=== PATIENT | female | born 1935 | race Caucasian/White ===

== ENCOUNTER → 2017-08-29 | Outpatient (CLI) | payer MEDICARE ==
[~2017-08-29] MED LIST: ASPI325B; ATEN100; ATOR10 PO; CULTURELLE1 EACH PO; DIAVAN; DIPATR PO; DULO30 PO; EZET10; HYDACE5 PO; HYDR1TAB94 PO; LEVFLO500 PO; LEVSOD125 PO; METR500 PO; NYST100SU MT; OMEP20ER PO; Prednisone20 MG PO; VENL25 PO; VENL75
== END | disposition home or self-care (01) ==
LOC: LAB 16:05
DX: N89.8 Other specified noninflammatory disorders of vagina (principal)
CPT/HCPCS: 87070; 87205

== ENCOUNTER 2018-07-15 12:44 | Emergency (ER) | payer MEDICARE ==
[~2018-07-15] VITALS: Ht 154.9 cm; Wt 58.1 kg
[~2018-07-15 12:44] MED LIST changes: -ONDA4 PO; -Roxicodone5 MG PO
[2018-07-15 14:04] LABS: Alanine Aminotransfer (ALT/SGP 40 U/L (12-78); Albumin, Blood 3.3 g/dL (3.4-5.0); Albumin/Globulin Ratio 0.9 (0.8-1.8); Alk Phos 89 U/L (50-136); Anion Gap 6 mmol/L (6-16); Aspartate Aminotrans (AST/SGOT 42 U/L (12-37); Bilirubin, Total 0.3 mg/dL (0.1-1.0); Blood Urea Nitrogen 18 mg/dL (8-24); Bun/Creatinine Ratio 21.2 (12.0-20.0); CO2, Blood 24 mmol/L (21-32); Calcium, Blood 8.1 mg/dL (8.5-10.1); Chloride, Blood 112 mmol/L (98-108); Creatinine, Blood 0.85 mg/dL (0.40-1.00); Globulin, Blood 3.7 g/dL (2.2-4.0); Glomerular Filtration Rate >60 (60-); Glucose, Blood 114 mg/dL (70-99); Magnesium, Blood 1.6 mg/dL (1.6-2.4); Sodium, Blood 142 mmol/L (136-145)
[2018-07-15 14:54] LABS: Triglycerides 139 mg/dL (30-160)
[2018-07-15] MEDS ORDERED: Roxicodone5 MG PO (15:09)
[2018-07-15] MEDS ORDERED: ONDA4 PO (15:09)
== END 2018-07-15 15:28 | disposition home or self-care (01) ==
LOC: ER 12:44
PROVIDERS: Physician Assistant
DX: K85.90 Acute pancreatitis without necrosis or infection, unspecified (principal); I12.9 Hypertensive chronic kidney disease with stage 1 through stage 4 chronic kidney disease, or unspecified chronic kidney disease; E03.9 Hypothyroidism, unspecified; N18.9 Chronic kidney disease, unspecified; E78.5 Hyperlipidemia, unspecified; Z87.891 Personal history of nicotine dependence; Z90.49 Acquired absence of other specified parts of digestive tract
CPT/HCPCS: 74177; 80053; 83690; 83735; 84478; 85025; 96360; 96361; 99284-25; J7030; Q9967

== ENCOUNTER → 2018-07-15 | Outpatient (CLI) | payer MEDICARE ==
[~2018-07-15] MED LIST changes: +ONDA4 PO; +Roxicodone5 MG PO
[2018-07-15 11:14] LABS: BASOPHILS ABSOLUTE AUTO 0.05 K/mm3 (0.00-0.23); BASOPHILS PERCENT AUTO 1 % (0-2); EOSINOPHILS ABSOLUTE AUTO 0.04 K/mm3 (0.00-0.68); EOSINOPHILS PERCENT AUTO 1 % (0-6); Hematocrit 38.9 % (33.0-51.0); Hemoglobin 13.1 g/dL (11.5-16.0); IMMATURE GRAN ABSOLUTE AUTO 0.02 K/mm3 (0.00-0.10); IMMATURE GRAN PERCENT AUTO 0 % (0-1); LYMPHOCYTES ABSOLUTE AUTO 0.81 K/mm3 (0.84-5.20); LYMPHOCYTES PERCENT AUTO 12 % (21-46); MONOCYTES ABSOLUTE AUTO 0.55 K/mm3 (0.16-1.47); MONOCYTES PERCENT AUTO 8 % (4-13); Mean Corpuscular HGB 28.7 pg (26.0-34.0); Mean Corpuscular HGB Conc 33.7 g/dL (31.5-36.5); Mean Corpuscular Volume 85 fL (80-100); Mean Platelet Volume 10.9 fL (9.1-12.4); NEUTROPHILS ABSOLUTE AUTO 5.38 K/mm3 (1.96-9.15); NEUTROPHILS PERCENT AUTO 79 % (41-73); Platelet Count 168 K/mm3 (150-400); RDW Coefficient Variation 14.9 % (11.7-14.2); RDW Standard Deviation 45.6 fL (35.1-46.3); Red Blood Cell Count 4.56 M/mm3 (3.80-5.20); White Blood Cell Count 6.85 K/mm3 (4.00-11.30)
[2018-07-15 11:31] LABS: Albumin, Blood 3.3 g/dL (3.4-5.0); Albumin/Globulin Ratio 0.8 (0.8-1.8); Bilirubin, Total 0.4 mg/dL (0.1-1.0); Bun/Creatinine Ratio 19.2 (12.0-20.0); Calcium, Blood 9.4 mg/dL (8.5-10.1); Creatinine, Blood 1.04 mg/dL (0.40-1.00); Globulin, Blood 3.9 g/dL (2.2-4.0); Potassium, Blood 3.9 mmol/L (3.5-5.5); Total Protein, Blood 7.2 g/dL (6.4-8.2)
== END | disposition home or self-care (01) ==
LOC: LAB SHORT 11:10 → LAB EV 11:10
PROVIDERS: General Practice
DX: R10.9 Unspecified abdominal pain (principal)
CPT/HCPCS: 80053; 83690; 85025

== ENCOUNTER 2019-02-10 22:09 | Inpatient (IN) | payer OTHER ==
[~2019-02-10] VITALS: Ht 160 cm; Wt 66.1 kg
[~2019-02-10 22:09] MED LIST changes: -LEVSOD125 PO; +ONDA4 PO; +Roxicodone5 MG PO
[2019-02-11 00:50] LABS: BASOPHILS ABSOLUTE AUTO 0.06 K/mm3 (0.00-0.23); BASOPHILS PERCENT AUTO 1 % (0-2); EOSINOPHILS PERCENT AUTO 2 % (0-6); Hematocrit 42.1 % (33.0-51.0); Hemoglobin 13.8 g/dL (11.5-16.0); IMMATURE GRAN ABSOLUTE AUTO 0.05 K/mm3 (0.00-0.10); IMMATURE GRAN PERCENT AUTO 1 % (0-1); LYMPHOCYTES ABSOLUTE AUTO 1.56 K/mm3 (0.84-5.20); LYMPHOCYTES PERCENT AUTO 23 % (21-46); MONOCYTES ABSOLUTE AUTO 0.63 K/mm3 (0.16-1.47); MONOCYTES PERCENT AUTO 9 % (4-13); Mean Corpuscular HGB 30.1 pg (26.0-34.0); Mean Corpuscular HGB Conc 32.8 g/dL (31.5-36.5); Mean Corpuscular Volume 92 fL (80-100); Mean Platelet Volume 11.2 fL (9.1-12.4); NEUTROPHILS ABSOLUTE AUTO 4.27 K/mm3 (1.96-9.15); NEUTROPHILS PERCENT AUTO 64 % (41-73); Platelet Count 153 K/mm3 (150-400); RDW Coefficient Variation 14.1 % (11.7-14.2); RDW Standard Deviation 47.8 fL (35.1-46.3); Red Blood Cell Count 4.58 M/mm3 (3.80-5.20); White Blood Cell Count 6.67 K/mm3 (4.00-11.30)
[2019-02-11 01:01] LABS: Albumin, Blood 3.8 g/dL (3.4-5.0); Bilirubin, Total 0.6 mg/dL (0.1-1.0); Calcium, Blood 8.6 mg/dL (8.5-10.1); Creatinine, Blood 1.06 mg/dL (0.40-1.00); Globulin, Blood 3.8 g/dL (2.2-4.0); Potassium, Blood 4.1 mmol/L (3.5-5.5); Total Protein, Blood 7.6 g/dL (6.4-8.2)
[2019-02-11 06:20] LABS: Hematocrit 39.4 % (33.0-51.0); Hemoglobin 12.9 g/dL (11.5-16.0)
[2019-02-11 06:56] LABS: Bun/Creatinine Ratio 28.4 (12.0-20.0); Calcium, Blood 8.3 mg/dL (8.5-10.1); Creatinine, Blood 1.09 mg/dL (0.40-1.00); Potassium, Blood 4.3 mmol/L (3.5-5.5)
--- NOTE | 2019-02-11 08:05 | NUR ---
SUMMARY PT ADMITTED THIS AM FOR ORTHO CX RE:FX HIP. PT REPORTS DILAUDID EFFECTVIE FOR PAIN. ABLE TO VOID PER BEDPAN. CIRC CKS INTACT.
--- NOTE | 2019-02-11 14:51 | NUR ---
PT TO OR AT ABOUT 1241
[2019-02-11 18:12] LABS: Thyroxine (T4) 14.7 ug/dL (4.8-13.9)
[2019-02-11 18:14] LABS: Thyroid Stimulating Hormone <0.005 uIU/mL (0.360-4.800)
--- NOTE | 2019-02-11 19:24 | NUR ---
POST OP: REPORT RECIEVED FROM FRANKY, [employer] FIRE PREVENTION SPECIALIST. PT BACK FROM OR AT ABOUT 1600. UPON ASSESSMENT PT IS DROWSY, AWAKENS BUT FALLS BACK TO SLEEP QUICKLY. PT IS ORIENTED TO SELF AND FAMILY ONLY, FOLLOWS DIRECTIONS. PT HAS SHALLOW BREATHING AND RR AT 7 IF SLEEPING, 10 IF AWAKENED AND MORE ALERT. PT ENCOURAGED TO TAKE MORE DEEP BREATHS AND DIGITAL MARKETING PROGRAM MANAGER RONNELL CALLED TO ROOM. AFTER CONTINUED ASSESSMENT AND PT RR CONTINUING TO BE 7-10, RONNELL CALLED DR. MCCARTY AND DR. RENAE. TO MAKE AWARE OF PT STATUS. THIS RN CONTINUED TO BE IN ROOM AT BEDSIDE. AT 1627 PT STATUS HAD NOT CHANGED AND NO NEW ORDERS FROM MD'S AT THIS TIME. A RAPID RESPONSE WAS THEN CALLED AT APPROX 1630. RR TEAM AND DIGITAL MARKETING PROGRAM MANAGER IN ROOM AT 1635 AND PT ASSESSED. HOB RAISED AND O2 INCREASED FROM 2L TO 4L VIA NC. PT BECAME MORE ALERT AND AWAKE WITH MORE ACTIVITY IN THE ROOM AND RR INCREASED TO 15, CONTINUED TO ENCOURAGE DEEP BREATHS, AND ASKING PT TO ANSWER QUESTIONS. CONTINUIOUS BI OX PLACED ON PT AND PT FAMILY ALSO IN ROOM AT THIS TIME.
--- NOTE | 2019-02-11 19:41 | NUR ---
PT TO IMAGING. TECH TOOK PT IN HOSP BED. PT DROWSY, ALERT, ORIENTED X2, VSS.
--- NOTE | 2019-02-11 19:43 | NUR ---
DR. RENAE IN TO SEE PT AT ABOUT 1720. PT RR 12, AND 98% ON 4L. PT CONTINUES TO BE DROWSY, BUT AWAKENS TO VOICE AND FOLLOWS DIRECTIONS. ORIENTED X4. DR. RENAE ORDERED NARCAN TO BE GIVEN AND THIS RN ADMINISTERED 0.4 MG AT 1728. PT CONTINUED TO BE MONITORED CLOSELY AND VITAL SIGNS TAKEN. PT MORE AWAKE AND ALERT ABOUT 4 MIN AFTER ADMINISTRATION. RR 15. NEW IMAGING ORDERS FROM DR. RENAE AT THIS TIME. CONTINUING TO MONITOR CLOSLY, TELE ALSO ORDERED, APPLIED AND VERIFIED. NSR, 68. WILL CTM PT STATUS.
--- NOTE | 2019-02-11 20:01 | NUR ---
SUMMARY: SEE PREVIOUS NOTES. PT RR AND VS STABLE AT 1808. PT IS MUCH MORE ALERT AND NON DROWSY, TAKING DEEPING BREATHS. PT ABLE TO EAT SOME JELLO AND DRINK WATER. DENIED NEED TO VOID, BLADDER SCAN SHOWED 223ML, WILL KEEP FLUIDS INFUSING AND MAKE NOC RN AWARE. PT REPORTED PAIN REDUCED WITH TORADOL..ICE PACK PUT AT SURGICAL SITE. DRESSINGS ARE CDI, CSM INTACT TO R LEG. BED ALARM ON FOR SAFETY.. WILL PASS REPORT TO NOC RN.
--- NOTE | 2019-02-11 22:33 | NUR ---
DR IBARRA CALLED IN FOR AN UPDATE. PT NEURO STATUS AND VITALS REV W/MD. NO NEW ORDERS REC AT THIS TIME.
[2019-02-12 04:27] LABS: BASOPHILS PERCENT AUTO 0 % (0-2); EOSINOPHILS PERCENT AUTO 0 % (0-6); Hematocrit 32.1 % (33.0-51.0); Hemoglobin 10.5 g/dL (11.5-16.0); IMMATURE GRAN ABSOLUTE AUTO 0.02 K/mm3 (0.00-0.10); IMMATURE GRAN PERCENT AUTO 0 % (0-1); LYMPHOCYTES ABSOLUTE AUTO 0.41 K/mm3 (0.84-5.20); LYMPHOCYTES PERCENT AUTO 7 % (21-46); MONOCYTES ABSOLUTE AUTO 0.17 K/mm3 (0.16-1.47); MONOCYTES PERCENT AUTO 3 % (4-13); Mean Corpuscular HGB 29.7 pg (26.0-34.0); Mean Corpuscular HGB Conc 32.7 g/dL (31.5-36.5); Mean Corpuscular Volume 91 fL (80-100); Mean Platelet Volume 10.9 fL (9.1-12.4); NEUTROPHILS ABSOLUTE AUTO 5.05 K/mm3 (1.96-9.15); NEUTROPHILS PERCENT AUTO 89 % (41-73); Platelet Count 86 K/mm3 (150-400); RDW Coefficient Variation 14.2 % (11.7-14.2); RDW Standard Deviation 46.9 fL (35.1-46.3); Red Blood Cell Count 3.53 M/mm3 (3.80-5.20); White Blood Cell Count 5.65 K/mm3 (4.00-11.30)
--- NOTE | 2019-02-12 05:05 | NUR ---
POS 1 S/P R HIP REPAIR. PT MORE ALERT THIS AM, VSS T/O NIGHT, HR SINUS 60'S PER TELE MONITOR, SATS >94% ON 2LNC. DRESSINGS CDI. PAIN MGD W/REPOSITIONING AND TORADOL. PT KIERRA REG PO, IS VOIDING URINE W/O DIFFICULTY. PT UP OOB W/FWW+2 MAX ASSIST, PT NEEDING FREQUENT REMINDERS TO MAINTAIN WBS. PT USING CALL LIGHT THIS AM, BED ALARM ON FOR SAFETY, WILL CONT TO MONITOR UNTIL REP GIVEN TO ONCOMING RN.
--- NOTE | 2019-02-12 19:46 | NUR ---
SHIFT SUMMARY PT A&OX4, VSS, POD1 R HIP NAILING, 2 AQUACEL CDI. AMB W/FWW & GB TO BED, CHAIR AND BRP, TTWB. PAIN MANAGED WITH TORADOL. KIERRA PO, DENIES N&V. SAT IN CHAIR T/O SHIFT. VOIDING WELL. REPORT GIVEN TO AROLDO DUNN.
--- NOTE | 2019-02-13 05:47 | NUR ---
SHIFT SUMMARY POD#2 RIGHT TFN. PT RESTED INFREQUENTLY T/O NIGHT. CONFUSED AT TIMES/IMPULSIVE. PT REMOVED DRESSING TO HIP THIS SHIFT, NEW DRESSING APPLIED. DISCOMFORT CONTROLLED WITH TORADOL Q6P. NO NAUSEA/EMESIS. PT SBA WITH FWW UP TO RESTROOM. BED ALARM ON FOR SAFETY. IVF TKO. PT HAD LARGE BM THIS AM. RESTING AT THIS TIME. CALL LIGHT IN REACH. NADN.
[2019-02-13 05:49] LABS: BASOPHILS PERCENT AUTO 0 % (0-2); EOSINOPHILS PERCENT AUTO 0 % (0-6); Hematocrit 30.5 % (33.0-51.0); Hemoglobin 9.9 g/dL (11.5-16.0); IMMATURE GRAN ABSOLUTE AUTO 0.02 K/mm3 (0.00-0.10); IMMATURE GRAN PERCENT AUTO 0 % (0-1); LYMPHOCYTES ABSOLUTE AUTO 0.51 K/mm3 (0.84-5.20); LYMPHOCYTES PERCENT AUTO 8 % (21-46); MONOCYTES ABSOLUTE AUTO 0.65 K/mm3 (0.16-1.47); MONOCYTES PERCENT AUTO 10 % (4-13); Mean Corpuscular HGB 30.1 pg (26.0-34.0); Mean Corpuscular HGB Conc 32.5 g/dL (31.5-36.5); Mean Corpuscular Volume 93 fL (80-100); Mean Platelet Volume 11.4 fL (9.1-12.4); NEUTROPHILS ABSOLUTE AUTO 5.07 K/mm3 (1.96-9.15); NEUTROPHILS PERCENT AUTO 81 % (41-73); RDW Coefficient Variation 14.5 % (11.7-14.2); RDW Standard Deviation 48.9 fL (35.1-46.3); Red Blood Cell Count 3.29 M/mm3 (3.80-5.20); White Blood Cell Count 6.25 K/mm3 (4.00-11.30)
[2019-02-13 05:51] LABS: Platelet Count 88 K/mm3 (150-400)
== END 2019-02-13 14:10 | DRG 482 ==
LOC: ER 22:09 → SURS 22:10
PROVIDERS: Emergency Medicine; Orthopaedic Surgery; ADMIT Family Medicine
PROC: 0QH636Z Insertion of Intramedullary Internal Fixation Device into Right Upper Femur, Percutaneous Approach (ICD-10-PCS; principal; 2019-02-11 10:15)
DX: S72.144A Nondisplaced intertrochanteric fracture of right femur, initial encounter for closed fracture (principal); W19.XXXA Unspecified fall, initial encounter; I10 Essential (primary) hypertension; E03.9 Hypothyroidism, unspecified; Z87.891 Personal history of nicotine dependence; Z79.899 Other long term (current) drug therapy; S09.8XXA Other specified injuries of head, initial encounter
CPT/HCPCS: 36415; 70450; 71045; 72192; 73502; 80048; 80053; 84436; 84443; 85014; 85018; 85025; 93005; 93010; 94762; 96374; 96375; 96376; 97110; 97116; 97162; 97166; 97530; 97535; 99285-25; A9270-GY; C1713; C1769; J0690; J1100; J1170; J1650; J1885; J2250; J2310; J2370; J2405; J2704; J3010; J3480; J7030; J7120

== ENCOUNTER 2019-03-03 11:24 | Emergency (ER) | payer OTHER ==
[~2019-03-03] VITALS: Ht 157.5 cm; Wt 52.2 kg
[2019-03-03] MEDS ORDERED: Hydrocodone-Ap1 EA23 PO (11:31)
[2019-03-03] MEDS ORDERED: MEMA5TAB PO (11:32)
[2019-03-03] MEDS ORDERED: ALLO100 PO (11:32)
[2019-03-03 12:26] LABS: BASOPHILS ABSOLUTE AUTO 0.04 K/mm3 (0.00-0.23); BASOPHILS PERCENT AUTO 0 % (0-2); EOSINOPHILS ABSOLUTE AUTO 0.01 K/mm3 (0.00-0.68); EOSINOPHILS PERCENT AUTO 0 % (0-6); Hematocrit 36.4 % (33.0-51.0); Hemoglobin 11.8 g/dL (11.5-16.0); IMMATURE GRAN ABSOLUTE AUTO 0.11 K/mm3 (0.00-0.10); IMMATURE GRAN PERCENT AUTO 1 % (0-1); LYMPHOCYTES ABSOLUTE AUTO 0.73 K/mm3 (0.84-5.20); LYMPHOCYTES PERCENT AUTO 5 % (21-46); MONOCYTES ABSOLUTE AUTO 0.98 K/mm3 (0.16-1.47); MONOCYTES PERCENT AUTO 7 % (4-13); Mean Corpuscular HGB 28.8 pg (26.0-34.0); Mean Corpuscular HGB Conc 32.4 g/dL (31.5-36.5); Mean Corpuscular Volume 89 fL (80-100); Mean Platelet Volume 11.9 fL (9.1-12.4); NEUTROPHILS ABSOLUTE AUTO 11.78 K/mm3 (1.96-9.15); NEUTROPHILS PERCENT AUTO 86 % (41-73); Platelet Count 183 K/mm3 (150-400); RDW Coefficient Variation 13.3 % (11.7-14.2); RDW Standard Deviation 43.5 fL (35.1-46.3); White Blood Cell Count 13.65 K/mm3 (4.00-11.30)
[2019-03-03 12:39] LABS: Albumin, Blood 3.2 g/dL (3.4-5.0); Albumin/Globulin Ratio 0.8 (0.8-1.8); Bilirubin, Total 0.7 mg/dL (0.1-1.0); Bun/Creatinine Ratio 29.2 (12.0-20.0); Calcium, Blood 8.5 mg/dL (8.5-10.1); Creatinine, Blood 1.06 mg/dL (0.40-1.00); Globulin, Blood 3.8 g/dL (2.2-4.0); Potassium, Blood 4.3 mmol/L (3.5-5.5)
[2019-03-03] MEDS ORDERED: Flagyl500 MG PO (14:18)
[2019-03-03] MEDS ORDERED: Cipro500 MG PO (14:18)
== END 2019-03-03 14:50 | disposition home or self-care (01) ==
LOC: ER 11:24
PROVIDERS: Emergency Medicine
DX: K57.12 Diverticulitis of small intestine without perforation or abscess without bleeding (principal); Z88.8 Allergy status to other drugs, medicaments and biological substances; Z79.899 Other long term (current) drug therapy; I10 Essential (primary) hypertension; E03.9 Hypothyroidism, unspecified; Z87.891 Personal history of nicotine dependence
CPT/HCPCS: 36415; 74176; 80053; 83690; 85025; 93005; 93010; 96361; 96374; 99285-25; A9270-GY; J1170; J7030

== ENCOUNTER 2019-03-10 16:41 | Inpatient (IN) | payer OTHER ==
[~2019-03-10] VITALS: Ht 160 cm; Wt 60.2 kg
[~2019-03-10 16:41] MED LIST changes: +ALLO100 PO; +Cipro500 MG PO; +Flagyl500 MG PO; +Hydrocodone-Ap1 EA23 PO; +MEMA5TAB PO
[2019-03-10] MEDS ORDERED: LEVSOD100 PO (17:16)
[2019-03-10] MEDS ORDERED: CELE100 PO (17:17)
[2019-03-10 17:40] LABS: BASOPHILS ABSOLUTE AUTO 0.04 K/mm3 (0.00-0.23); BASOPHILS PERCENT AUTO 1 % (0-2); EOSINOPHILS ABSOLUTE AUTO 0.09 K/mm3 (0.00-0.68); EOSINOPHILS PERCENT AUTO 1 % (0-6); IMMATURE GRAN ABSOLUTE AUTO 0.07 K/mm3 (0.00-0.10); IMMATURE GRAN PERCENT AUTO 1 % (0-1); LYMPHOCYTES ABSOLUTE AUTO 0.66 K/mm3 (0.84-5.20); LYMPHOCYTES PERCENT AUTO 10 % (21-46); MONOCYTES ABSOLUTE AUTO 0.57 K/mm3 (0.16-1.47); MONOCYTES PERCENT AUTO 9 % (4-13); Mean Corpuscular HGB 28.8 pg (26.0-34.0); Mean Corpuscular HGB Conc 31.3 g/dL (31.5-36.5); Mean Platelet Volume 10.8 fL (9.1-12.4); NEUTROPHILS ABSOLUTE AUTO 5.25 K/mm3 (1.96-9.15); NEUTROPHILS PERCENT AUTO 79 % (41-73); Platelet Count 160 K/mm3 (150-400); RDW Coefficient Variation 14.2 % (11.7-14.2); RDW Standard Deviation 48.1 fL (35.1-46.3); Red Blood Cell Count 3.47 M/mm3 (3.80-5.20); White Blood Cell Count 6.68 K/mm3 (4.00-11.30)
[2019-03-10 17:41] LABS: Mean Corpuscular Volume 92 fL (80-100)
[2019-03-10 17:56] LABS: Troponin I <0.015 ng/mL (0.000-0.040)
[2019-03-10 17:59] LABS: International Normalized Ratio 1.23; Prothrombin Time Results 12.8 Sec (9.7-11.5)
[2019-03-10 18:04] LABS: Alanine Aminotransfer (ALT/SGP 9 U/L (12-78); Albumin, Blood 2.5 g/dL (3.4-5.0); Albumin/Globulin Ratio 0.7 (0.8-1.8); Alk Phos 85 U/L (50-136); Anion Gap 10 mmol/L (6-16); Aspartate Aminotrans (AST/SGOT 12 U/L (12-37); Bilirubin, Total 0.4 mg/dL (0.1-1.0); Blood Urea Nitrogen 115 mg/dL (8-24); Bun/Creatinine Ratio 11.4 (12.0-20.0); CO2, Blood 16 mmol/L (21-32); Calcium, Blood 7.8 mg/dL (8.5-10.1); Chloride, Blood 111 mmol/L (98-108); Globulin, Blood 3.5 g/dL (2.2-4.0); Glomerular Filtration Rate 4 (60-); Glucose, Blood 101 mg/dL (70-99); Potassium, Blood 5.9 mmol/L (3.5-5.5); Sodium, Blood 137 mmol/L (136-145)
[2019-03-10] MEDS ORDERED: LEVSOD125 PO (18:12)
[2019-03-10] MEDS ORDERED: DONEPEZIL HCL5 M1 PO (18:12)
[2019-03-10] MEDS ORDERED: ATEN50 PO (18:14)
[2019-03-10 18:30] LABS: Source, Urine Clean Catch
[2019-03-10 18:38] LABS: Appearance, Urine Hazy (Clear); Bilirubin, Urine Neg (Neg); Blood, Urine Neg (Neg); Color, Urine Yellow (P-Yellow); Glucose Qualitative, Urine Neg (Neg); Ketones, Urine Neg (Neg); Leukocyte Esterase, Urine 1+ (Neg); Nitrite, Urine Neg (Neg); Protein, Urine Neg (Neg); Urobilinogen, Urine NORM (Normal)
[2019-03-10 18:46] LABS: Amorphous Light (0-Heavy); Bacteria Few /hpf; Red Blood Cells, Urine 0-2 /hpf (0-2); Squamous Epithelial Cells Mod /hpf (Few); White Blood Cells, Urine 0-2 /hpf (0-5)
[2019-03-11 03:59] LABS: Hematocrit 29.2 % (33.0-51.0); Hemoglobin 9.3 g/dL (11.5-16.0); Mean Corpuscular HGB 28.4 pg (26.0-34.0); Mean Corpuscular HGB Conc 31.8 g/dL (31.5-36.5); Mean Corpuscular Volume 89 fL (80-100); Mean Platelet Volume 10.5 fL (9.1-12.4); Platelet Count 156 K/mm3 (150-400); RDW Coefficient Variation 13.8 % (11.7-14.2); RDW Standard Deviation 45.4 fL (35.1-46.3); Red Blood Cell Count 3.27 M/mm3 (3.80-5.20); White Blood Cell Count 5.35 K/mm3 (4.00-11.30)
[2019-03-11 04:24] LABS: Magnesium, Blood 2.2 mg/dL (1.6-2.4)
[2019-03-11 04:30] LABS: Albumin, Blood 2.4 g/dL (3.4-5.0); Anion Gap 14 mmol/L (6-16); Blood Urea Nitrogen 127 mg/dL (8-24); Bun/Creatinine Ratio 12.6 (12.0-20.0); CO2, Blood 16 mmol/L (21-32); Chloride, Blood 112 mmol/L (98-108); Glomerular Filtration Rate 4 (60-); Glucose, Blood 113 mg/dL (70-99); Potassium, Blood 5.5 mmol/L (3.5-5.5); Sodium, Blood 142 mmol/L (136-145)
--- NOTE | 2019-03-11 06:15 | NUR ---
SHIFT SUMMARY PT SLEEPING IN ROOM COMFORTABLY AT THIS TIME. NO ACUTE CHANGES IN STATUS SINCE PT ARRIVAL. DR ZAMUDIO SAW PT AND ORDERS WERE GIVEN. SODIUM BICARB GTT INFUSING IN PIV. PT DENIES ANY FURTHER N/V, ABLE TO TOLERATE ICE WATER. DENIES ANY CP OR SOB. RESP EVEN UNLABORED ON RA W/ SATS >92%. PT AOX4, SOME DEMENTIA NOTED IN HX, PT DENIES. PT IS BR AT THIS TIME D/T WEAKNESS, USING BEDPAN FOR LIQUID STOOL. ATTENDS IN PLACE. CALL LIGHT IN REACH.
--- NOTE | 2019-03-11 16:41 | NUR ---
MSRA SWABS CANCELED MRSA SWABS, PT REPORTS SHE HAS BEEN TAKING ANTIBIOTICS AN OUTPATIENT. FAMILY PARVIN HER LAST DOSE WAS ON 02/06/2019 AT ABOUT 1900. WILL NEED TO COLLECT NEW SWABS ONCE PT HAS BEEN OFF OF ANTIBIOTICS FOR 48HRs.
--- NOTE | 2019-03-11 16:47 | NUR ---
SHIFT SUMMARY PT A&Ox4. CALM AND COOPERATIVE WITH CARE. PT RESTING IN BED. UP TO BSC x1, 2 PERSON ASSIST WITH TRANSFER WITH GB AND WALKER. AFTER LUNCH, PT REPORTS BLOATING AND ABD CRAMPING, NOTIFIED DR GODWIN NEW ORDERS ENTERED, MAALOX ADMINISTERED WITH SYMPTOMS RELIEF. PT DENIES SOB AND PAIN. VSS. NOTIFIED DR. ZAMUDIO THAT PT IS HAVING LIQUID STOOL AND UNABLE TO SEPERATE FROM URINE FOR 24 HR URINE, NO NEW ORDERS. WILL CONTINUE TO MONITOR UNTIL REPORT GIVEN TO ONCOMING RN.
--- NOTE | 2019-03-11 18:54 | NUR ---
BLADDER SCAN >500cc, PT DOES FEEL THE NEED TO VOID, NOTIFIED DR ZAMUDIO, NEW ORDERS ENTERED.
[2019-03-12 03:54] LABS: Hematocrit 28.3 % (33.0-51.0); Hemoglobin 9.3 g/dL (11.5-16.0)
[2019-03-12 04:19] LABS: CPK Creatine Kinase 23 U/L (26-193); Uric Acid, Blood 7.6 mg/dL (2.6-6.0)
[2019-03-12 04:22] LABS: Albumin, Blood 2.4 g/dL (3.4-5.0); Anion Gap 11 mmol/L (6-16); Blood Urea Nitrogen 115 mg/dL (8-24); Bun/Creatinine Ratio 11.3 (12.0-20.0); CO2, Blood 26 mmol/L (21-32); Calcium, Blood 6.9 mg/dL (8.5-10.1); Chloride, Blood 103 mmol/L (98-108); Glomerular Filtration Rate 4 (60-); Glucose, Blood 148 mg/dL (70-99); Potassium, Blood 4.3 mmol/L (3.5-5.5); Sodium, Blood 140 mmol/L (136-145)
--- NOTE | 2019-03-12 06:23 | NUR ---
SHIFT SUMMARY PT HAS REMAINED AOX4 THROUGHOUT THE NIGHT, BUT FORGETFUL UPON FIRST WAKING. PT HAS BEEN CALLING OUT INTO THE [facility] FOR FAMILY WHEN SHE WAKES UP AND IS UNSURE OF WHERE SHE IS, BUT REORIENTS QUICKLY. VSS. HAS BEEN VERY PLEASANT AND COOPERATIVE WITH CARE. PT CONTINUES TO USE BEDPAN FOR VOIDING AND BMs, ONE EPISODE OF INCONTINENCE LAST NIGHT. PT CONTINUES TO REPORT ABDOMINAL DISCOMFORT AND "BLOATING" THAT DECREASED WITH MAALOX LAST NIGHT BUT DID NOT GO AWAY THROUGHOUT THE NIGHT. PT TURNED SELF IN BED AND WAS ABLE TO REST THROUGHOUT MUCH OF THE NIGHT. 24 HOUR URINE SPECIMEN STARTED @0315 THIS AM WHEN PT WAS ABLE TO VOID WITHOUT LIQUID STOOL. NO OTHER CHANGES NOTED FROM INITIAL ASSESSMENT. WILL CONTINUE TO MONITOR AND REPORT TO ONCOMING SHIFT RN. BED IN LOW POSITION, CALL LIGHT IN REACH. BED ALARM SET FOR SAFETY.
--- NOTE | 2019-03-12 08:00 | NUR ---
ASSUMED CARE PT ALERT AND ORIENTED. VS STABLE. O2 SATS REMAIN ABOVE 90% ON RA. PT DENIES ANY PAIN. PT HAVING INCONTINENT BM THIS MORNING THAT IS LIQUID BROWN. PT HAS NOT BEEN PRODUCING URINE PER ADVERTISING MANAGER. NS INFUSING PER ORDERS. PT REPOSITIONING HERSELF IN BED. DR. GODWIN IN WITH STATUS CHANGE TO MEDICAL WITHOUT TELEMETRY. WILL CONTINUE TO MONITOR.
--- NOTE | 2019-03-12 10:59 | NUR ---
REPORT CALLED TO MEDICAL FLOOR RN. WILL TAKE PT UP BY BED.
--- NOTE | 2019-03-12 11:15 | NUR ---
PT ARRIVED TO THE MEDICAL FLOOR VIA BED, A/OX3, PLEASANT AND COOPERATIVE, THE PT WAS ORIENTED TO THE ROOM LAYOUT AND CALL SYSTEM, PTS IS AT THE BEDSIDE, CALL LIGHT IN REACH, THE PT APPEARS TO BE BREATHING EASILY AT REST, I AGREE WITH THE AM RN SHIFT ASSESSMENT
--- NOTE | 2019-03-12 16:05 | NUR ---
PT IS A/OX3, PLEASANT AND COOPERATIVE, THE PT DENIES ANY PAIN HOWEVER REPORTED FEELING BLOATED AN ORDER FOR MALOX WAS ORDERED BY DR. GODWIN AND GIVEN, THE PTS 24HR URINE COLLECTION WAS RESTARTED DUE TO STOOL IN ONE OF THE COLLECTIONS, THE PT CONTINUES TO HAVE DIARRHEA AT THIS TIME, THE PT APPEARS TO BE BREATHING EASILY AT REST, CALL LIGHT IN REACH, FAMILY AT THE BEDSIDE
--- NOTE | 2019-03-13 03:59 | NUR ---
SHIFT SUMMARY PT ADMITTED FOR ACUTE ON CHRONIC KIDNEY INJURY. CONTACT ISOLATION FOR HX OF MRSA IN THE NARES. FULL CODE. RENAL DIET. NS AT 75 MLS/HR. R HIP FX ABOUT 1 MONTH AGO PER REPORT. PTS CREATNINE 10.2 AND GFR OF 4-DR ZAMUDIO FOLLOWING PT. CONTINUE TO ATTEMPT TO COLLECT 24 HR URINE HOWEVER, HAD TO BE RESTARTED DUE TO PTS STOOL CONTAMINATING URINE. HAD TO START OVER THIS SHIFT AND AGAIN URINE WAS CONTAMINATED BY LOOSE STOOL. 18G IV TO R AC. TAKES MEDICATIONS WHOLE. 2 PERSON ASSIST WITH TRANSFER. THE PT PRESENTED WITH ABDOMINAL PAIN, NAUSEA, DECREASED APPETITE AND URINE OUTPUT. THE PT WAS SEEN IN THE ED 10 DAYS AGO WITH ABD PAIN AND DIARRHEA AND WAS SENT HOME ON ANTIBIOTICS. THE PT RETURNED, STATING THAT THERE HAD BEEN NO FOOD OR WATER INTAKE FOR 6-7 DAYS AND NO URINE OUTPUT FOR 3 DAYS. THE PT REPORTED C/O DIFFICULTY BREATHING AND FEELING VERY BLOATED. PT STATS GREATER THEN 90. ASSISTED WITH DEEP BREATHING TECHNIQUES. PT C/O BEING COLD. APPLIED WARM BLANKETS, RE-ASSESSED FOR COMFORT AND PT HAD REMOVED BLANKETS STATING TOO WARM. PT CONTINUED TO APPEAR VERY ANXIOUS ABOUT BREATHING AND STATED "I DON'T THINK I'M GETTING ENOUGHT OXYGEN." THE PT APPEARED TO BE HAVING SEVERE ANXIETY SECONDARY TO BLOATING TO ABDOMEN AND THINKING THAT THIS WAS PUSHING AGAINST LUNGS. CALL TO HOSPITALIST WHO GAVE 1 TIME ORDER FOR XANEX, WHICH APPEARED TO REDUCE PTS ANXIETY AND ALLOW PT TO FALL ASLEEP. PT APPEARS TO BE SLEEPING COMFORTABLY AT THIS TIME WITH NO APPARENT SIGNS OF ACUTE DISTRESS. ABLE TO MAKE NEEDS KNOWN AND CALL LIGHT IN REACH.
[2019-03-13 04:40] LABS: Hematocrit 29.7 % (33.0-51.0); Hemoglobin 9.5 g/dL (11.5-16.0)
[2019-03-13 05:06] LABS: Albumin, Blood 2.3 g/dL (3.4-5.0); Anion Gap 10 mmol/L (6-16); Blood Urea Nitrogen 111 mg/dL (8-24); Bun/Creatinine Ratio 10.8 (12.0-20.0); CO2, Blood 26 mmol/L (21-32); Calcium, Blood 6.7 mg/dL (8.5-10.1); Chloride, Blood 106 mmol/L (98-108); Glomerular Filtration Rate 4 (60-); Glucose, Blood 106 mg/dL (70-99); Phosphorus, Blood 6.5 mg/dL (2.5-4.9); Potassium, Blood 4.4 mmol/L (3.5-5.5); Sodium, Blood 142 mmol/L (136-145)
--- NOTE | 2019-03-13 17:41 | NUR ---
PT IS A/OX3, PLEASANT AND COOPERATIVE, THE PT IS UP WITH ASSIST TO THE CHAIR AND THE BSC, PT HAS INCONTENNCE AT TIMES, PT IS TO HAVE A 24HR URINE PROTIEN DONE HOWEVER EVERY URINE OUTPUT CONTAINS STOOL PER THE ENTRY TECH, THE PT HAS BEEN UP IN THE CHAIR FOR MOST OF THE DAY, FAMILY AT THE BEDSIDE, THE PT WAS MEDICATED FOR BLOATING STOMACH X2 TODAY, PT APPEARS SOB AT TIMES, THE PT HAS HAD POOR NUTRITIONAL INTAKE TODAY, FAMILY AT THE BEDSIDE AT THIS TIME WILL CONTINUE TO MONITOR AND ASSESS FOR CHANGES
--- NOTE | 2019-03-14 03:17 | NUR ---
SHIFT SUMMARY NO APPARENT ACUTE CHANGES NOTED SO FAR THIS SHIFT. PT HAS APPEARED TO SLEEP AND REST MUCH MORE COMFORTABLY THIS NIGHT THEN PREVIOUS NIGHT AND APPEARED TO BE LESS ANXIOUS. DID NOT HAVE TO CALL TO GET MEDICATION FOR ANXIETY. PT ABLE TO TOLLERATE ORAL INTAKE WITH SOME SMALL SIPS OF WATER AND POPCICLES. 24 HOUR URINE COLLECTION STARTED THIS NIGHT AT APPROXIMATELY 2230. VOID OF 500 MLS X1 SO FAR. SPOKE WITH PT REGARDING CONTAMINATION OF URINE WITH STOOL AND TALKING WITH MD ABOUT INSERTING CATHETER. PT WANTED TO ATTEMPT TO COLLECT 24HR URINE WITHOUT CATH PLACEMENT FIRST PT FELT THAT CATH MAY INCREASE RISK FOR INFECTION AND MAKE PT FEEL WORSE. APPEARS TO BE SLEEPING COMFORTABLY AT THIS TIME WITH NO APPARENT SIGNS OF ACUTE DISTRESS. FREQUENT VISUAL CHECKS. ABLE TO MAKE NEEDS KNOWN AND CALL LIGHT IN REACH.
[2019-03-14 04:43] LABS: Hematocrit 29.1 % (33.0-51.0); Hemoglobin 9.4 g/dL (11.5-16.0)
[2019-03-14 05:06] LABS: Magnesium, Blood 1.9 mg/dL (1.6-2.4)
[2019-03-14 05:09] LABS: Albumin, Blood 2.3 g/dL (3.4-5.0); Anion Gap 11 mmol/L (6-16); Blood Urea Nitrogen 107 mg/dL (8-24); Bun/Creatinine Ratio 10.4 (12.0-20.0); CO2, Blood 24 mmol/L (21-32); Calcium, Blood 6.8 mg/dL (8.5-10.1); Chloride, Blood 106 mmol/L (98-108); Glomerular Filtration Rate 4 (60-); Glucose, Blood 89 mg/dL (70-99); Phosphorus, Blood 6.1 mg/dL (2.5-4.9); Potassium, Blood 4.2 mmol/L (3.5-5.5); Sodium, Blood 141 mmol/L (136-145)
[2019-03-14 08:08] LABS: ANTIGLOMERULAR BM AB 3 units (0-20)
[2019-03-14 15:07] LABS: A/G RATIO 1.2 (0.7-1.7); ALBUMIN 2.6 g/dL (2.9-4.4); ALPHA-1-GLOBULIN 0.3 g/dL (0.0-0.4); ALPHA-2-GLOBULIN 0.7 g/dL (0.4-1.0); BETA GLOBULIN 0.4 g/dL (0.7-1.3); GAMMA GLOBULIN 0.8 g/dL (0.4-1.8); GLOBULIN, TOTAL 2.2 g/dL (2.2-3.9); IMMUNOGLOBULIN A, QN, SERUM <5 mg/dL (64-422); IMMUNOGLOBULIN G, QN, SERUM 836 mg/dL (700-1600); IMMUNOGLOBULIN M, QN, SERUM 89 mg/dL (26-217); M-SPIKE Not Observed g/dL (Not Observed); PROTEIN, TOTAL, SERUM 4.8 g/dL (6.0-8.5)
--- NOTE | 2019-03-14 16:57 | NUR ---
Initial Visit: Palliative Care Consult for Advanced Care Planning. Pt is sitting in chair upon arrival. Pt is A&Ox2. Pt appears confused for reason of hospital stay and states "I am here because of my broken bone". She is unable to state current year. Pt reports moderate dyspnea and states it is due to being bloated. Pt's boyfriend Dilan is present during visit. Engaged in therapeutic discussion regarding advanced care planning. Pt's reports living at home with Dilan and has adequate support with Dilan and her daughter. Discussed AD/POLST and educated on the importance of having wishes documented on paper. Dilan and Pt denied need. Pt states her daugher knows what her wishes are and is POA. Encouraged Pt to have Dilan or daughter present when MD's make their rounds. Encouraged to ask questions regarding plan and disease process. Pt reports no concerns at this time. Pt's level of understanding of current condition and disease process is questionable with mild to moderate confusion noted. Spoke with bedside nurse Emily and discussed case. Reported Pt's bloating and Emily reports Pt has simethicone available. Palliative Care will remain available.
--- NOTE | 2019-03-14 17:47 | NUR ---
Pal Spiritual Care inital note: Mrs. Solorzano is non-moravian, but she appeared to enjoy encouragement and gentle world travel counselor. She was sitting in chair, covered in blankets. She told me she hates being sick and wants to go home. Her dtr was also present. She is clearly devoted to her mom and told me some of pt's history. There appears to be strong family support. Marycarmen denied fears or concerns other than "its a nusiance being sick." I provided emotional affirmation and assurance of excellent care. I will remain available.
[2019-03-14 18:57] LABS: Night Urine Protein 16.9 mg/dL (0.0-11.9)
--- NOTE | 2019-03-14 19:27 | NUR ---
NO NOTEABLE CHANGES THIS SHIFT EXCEPT THE ECHO SHOWED AORTIC STENOSIS. THE 24 HOUR URINE WAS ONCE AGAIN CONTAMINATED WITH FECES. NOTIFIED DR. ZAMUDIO AND HE SAID "JUST SEND WHAT YOU HAVE". SPOUSE IN ROOM WITH PT. MOST OF THE DAY.
--- NOTE | 2019-03-14 22:22 | NUR ---
2222: PT WOKE UP SLIGHTLY DISORIENTED TO TIME AND EVENT AND TALKING ABOUT HER DAUGHTER. PT EASILY REORIENTED AND DENIES NEED FOR PRN PAIN MED. SPO2 96% ON ROOM. BLINDS CLOSED, LIGHTS DIMMED AND DOOR CLOSED PARTIALLY PER PT REQUEST.
--- NOTE | 2019-03-15 04:56 | NUR ---
SUMMARY: ADMIT DAY 6 ACUTE ON CHRONIC RENAL INJURY ON HOSPITALIST AND DR. ZAMUDIO'S SERVICES. VSS, AFEBRILE, ROOM AIR. SBA WITH FWW FOR BSC AND BRP. PT HAS SEVERAL HEAVY VOIDS THIS SHIFT AND SLEPT HEAVILY. 12 HOUR URINE COLLECTION COMPLETED WITH 1 RANDOM CLEAN CATCH SPECIMEN SENT TO LAB; AWAIT RESULTS. CONTINUE IV FLUIDS FOR GENTLE HYDRATION AND ENCOURAGE OOB ACTIVITY S/P HIP FX REPAIR.
[2019-03-15 05:12] LABS: Hematocrit 28.4 % (33.0-51.0); Hemoglobin 9.3 g/dL (11.5-16.0)
[2019-03-15 05:41] LABS: Magnesium, Blood 1.8 mg/dL (1.6-2.4)
[2019-03-15 05:48] LABS: Albumin, Blood 2.2 g/dL (3.4-5.0); Anion Gap 11 mmol/L (6-16); Blood Urea Nitrogen 99 mg/dL (8-24); Bun/Creatinine Ratio 10.6 (12.0-20.0); CO2, Blood 24 mmol/L (21-32); Chloride, Blood 107 mmol/L (98-108); Creatinine, Blood 9.38 mg/dL (0.40-1.00); Glomerular Filtration Rate 4 (60-); Glucose, Blood 86 mg/dL (70-99); Phosphorus, Blood 6.3 mg/dL (2.5-4.9); Potassium, Blood 3.8 mmol/L (3.5-5.5); Sodium, Blood 142 mmol/L (136-145)
--- NOTE | 2019-03-15 10:34 | NUR ---
CALLED DR. MCCARTY'S OFFICE I WAS INFORMED THAT THE PT'S WEIGHT BEARING STATUS ON THE RIGHT EXTREMETY MAY NOW BE PARTIAL WEIGHT BEARING (WAS TOE TOUCH).
--- NOTE | 2019-03-15 16:28 | NUR ---
LAB CALLED INFORMED BY LAB THAT THE PT TESTED POSITIVE FOR MRSA IN THE THROAT. PT ALREADY IN CONTACT PRECAUTIONS FOR MRSA IN THE NARES. I DID CALL AND LEAVE A MESSAGE WITH INFECTION PREVENTION, INFORMING THEM THAT THE PT IS POSITIVE FOR MRSA IN THE NARES AND THROAT.
--- NOTE | 2019-03-15 16:33 | NUR ---
SHIFT SUMMARY CALLED DR. MCCARTY'S OFFICE. PT HAD AN ORIF PROCEDURE ON HER RIGHT HIP ONE MONTH AGO, BUT WAS STILL IN TOE TOUCH WEIGHT BEARING RESTRICTIONS. DR. MCCARTY UPDATED THE PT'S WEIGHT BEARING STATUS TO PARTIAL WEIGHT BEARING. PHYSICAL THERAPY & OT ARE NOW ABLE TO WORK MORE WITH THIS PT. LAB CALLED AND INFORMED ME THAT THIS PT TESTED POSITIVE FOR MRSA IN THE THROAT. THE PT WAS ALREADY IN CONTACT PRECAUTIONS FOR MRSA IN THE NARES. I DID LEAVE A MESSAGE FOR INFECTION PREVENTION TO UPDATE THEM. PT WAS UP IN HER CHAIR MUCH OF THE DAY. SHE DID REQUEST MANDARIN ORANGES AND AN ENSURE TODAY. SHE IS URINATING, BUT SOME ARE UNMEASURED DUE TO INCONTINENCE. SHE IS A&O X4.
--- NOTE | 2019-03-16 03:20 | NUR ---
SHIFT SUMMARY PT IS ALERT AND ORIENTED X3, 1 ASSIST WITH WALKER. PT CONTINUES TO RECIEVE ORDERED FLUIDS WITHOUT COMPLAINT. GOOT URINE OUTPUT NOTED THIS SHIFT. NO LOOSE BMS OCCURRED THIS SHIFT. NO COMPLAINTS OF PAIN OR DISCOMFORT. WILL CONTINUE TO MONITOR.
[2019-03-16 04:48] LABS: BASOPHILS ABSOLUTE AUTO 0.03 K/mm3 (0.00-0.23); BASOPHILS PERCENT AUTO 1 % (0-2); EOSINOPHILS ABSOLUTE AUTO 0.07 K/mm3 (0.00-0.68); EOSINOPHILS PERCENT AUTO 1 % (0-6); Hematocrit 28.6 % (33.0-51.0); Hemoglobin 9.3 g/dL (11.5-16.0); IMMATURE GRAN ABSOLUTE AUTO 0.06 K/mm3 (0.00-0.10); IMMATURE GRAN PERCENT AUTO 1 % (0-1); LYMPHOCYTES ABSOLUTE AUTO 0.75 K/mm3 (0.84-5.20); LYMPHOCYTES PERCENT AUTO 13 % (21-46); MONOCYTES ABSOLUTE AUTO 0.66 K/mm3 (0.16-1.47); MONOCYTES PERCENT AUTO 11 % (4-13); Mean Corpuscular HGB 28.2 pg (26.0-34.0); Mean Corpuscular HGB Conc 32.5 g/dL (31.5-36.5); Mean Corpuscular Volume 87 fL (80-100); Mean Platelet Volume 10.5 fL (9.1-12.4); NEUTROPHILS PERCENT AUTO 73 % (41-73); Platelet Count 117 K/mm3 (150-400); RDW Coefficient Variation 13.7 % (11.7-14.2); RDW Standard Deviation 43.6 fL (35.1-46.3); White Blood Cell Count 5.87 K/mm3 (4.00-11.30)
[2019-03-16 05:18] LABS: Magnesium, Blood 1.7 mg/dL (1.6-2.4)
[2019-03-16 05:31] LABS: Albumin, Blood 2.3 g/dL (3.4-5.0); Anion Gap 11 mmol/L (6-16); Blood Urea Nitrogen 92 mg/dL (8-24); Bun/Creatinine Ratio 10.9 (12.0-20.0); CO2, Blood 25 mmol/L (21-32); Calcium, Blood 7.2 mg/dL (8.5-10.1); Chloride, Blood 105 mmol/L (98-108); Creatinine, Blood 8.45 mg/dL (0.40-1.00); Glomerular Filtration Rate 5 (60-); Glucose, Blood 86 mg/dL (70-99); Phosphorus, Blood 6.4 mg/dL (2.5-4.9); Potassium, Blood 3.5 mmol/L (3.5-5.5); Sodium, Blood 141 mmol/L (136-145)
--- NOTE | 2019-03-16 16:11 | NUR ---
SHIFT SUMMARY STOOL SAMPLE RETRIEVED TODAY FOR TESTING. PT WORKED WITH PHYSICAL THERAPY AND OT TODAY. PT IS NOW A STANDBY TO BATHROOM W/FWW. GFR IS 5 THIS MORNING. CREATININE IS 8.45 THIS MORNING. NEW MEDICATIONS HAVE BEEN ADDED TODAY FOR PT'S FREQUENT LOOSE STOOLS. PT HAS A VERY POOR APPETITE AND HAS EATEN VERY LITTLE. I HAVE BEEN BRINGING HER ENSURES WITH MEALS.
--- NOTE | 2019-03-16 16:35 | NUR ---
DISCHARGE PLANNING CALLED THEY ATTEMPTED TO CALL V.A. MULTIPLE TIMES TO ARRANGE TRANSPORT FOR THIS PT WITH NO RESPONSE FROM THE [facility]. ULTIMATELY, MY CHARGE NURSE ARRANGED FOR A TRANSPORT TAXI FOR THIS PT.
--- NOTE | 2019-03-16 17:11 | NUR ---
Pt visit this afternoon. Pt sitting in chair upon arrival. She denies pain and dyspnea at this time. Pt's boyfriend and Pt's granddaughter present during visit. Pt and family report no concerns at this time. Spoke with bedside nurse Nannette and discussed case. Palliative Care will remain avialable.
[2019-03-16 20:14] LABS: Adenovirus F 40/41 Not Detected (NOT DETECT); Astrovirus Not Detected (NOT DETECT); Campylobacter Sp Not Detected (NOT DETECT); Cryptosporidium Not Detected (NOT DETECT); Cyclospora Cayetanensis Not Detected (NOT DETECT); E. Coli O157 Not Detected (NOT DETECT); Entamoeba Histolytica Not Detected (NOT DETECT); Enteroaggregative E. coli-EAEC Not Detected (NOT DETECT); Enteropathogenic E. coli-EPEC Not Detected (NOT DETECT); Enterotoxigenic E. coli-ETEC Not Detected (NOT DETECT); Giardia Lamblia Not Detected (NOT DETECT); Norovirus GI/GII Not Detected (NOT DETECT); Plesiomonas Shigelloides Not Detected (NOT DETECT); Rotavirus A Not Detected (NOT DETECT); Salmonella Sp Not Detected (NOT DETECT); Sapovirus Not Detected (NOT DETECT); Shiga Toxin-prod E. coli-STEC Not Detected (NOT DETECT); Shigella/Enteroin E. coli-EIEC Not Detected (NOT DETECT); Vibrio Cholerae Not Detected (NOT DETECT); Vibrio Sp Not Detected (NOT DETECT); Yersinia Enterocolitica Not Detected (NOT DETECT)
[2019-03-17 04:34] LABS: Hematocrit 31.2 % (33.0-51.0)
[2019-03-17 04:58] LABS: Albumin, Blood 2.5 g/dL (3.4-5.0); Anion Gap 9 mmol/L (6-16); Blood Urea Nitrogen 78 mg/dL (8-24); Bun/Creatinine Ratio 10.6 (12.0-20.0); CO2, Blood 26 mmol/L (21-32); Calcium, Blood 7.4 mg/dL (8.5-10.1); Chloride, Blood 106 mmol/L (98-108); Creatinine, Blood 7.37 mg/dL (0.40-1.00); Glomerular Filtration Rate 6 (60-); Glucose, Blood 91 mg/dL (70-99); Magnesium, Blood 1.7 mg/dL (1.6-2.4); Phosphorus, Blood 5.5 mg/dL (2.5-4.9); Potassium, Blood 3.5 mmol/L (3.5-5.5); Sodium, Blood 141 mmol/L (136-145)
--- NOTE | 2019-03-17 07:27 | NUR ---
SHIFT SUMMARY PT HAD NO ISSUES NOTED. PT SLEPT T/O SHIFT. PT FAMILY IN ATTENDANCE T/O NIGHT. PT IS CURRENTLY SLEEPING AND BREATHING EASY. CALL LIGHT IN REACH.
--- NOTE | 2019-03-17 18:29 | NUR ---
SHIFT SUMMARY NGHIA IS ALERT AND COOPERATIVE THIS SHIFT. SOME MEMORY IMPAIRMENT NOTED. DAUGHTER, GRANDAUGHTER, AND BOYFRIEND VISITED. IVF CONTINUED. PARTIAL WB ON RLE WITH WALKER, SCHEDULED TOILETING TO BATHROOM KEPT PT CONTINENT. BED ALARM ON. IN CHAIR MUCH OF THE DAY DENIED PAIN. TOOK MEDS PRESCRIBED. CALL LIGHT IN REACH. WCTM
--- NOTE | 2019-03-18 03:34 | NUR ---
SUMMARY: PT IS A/OX3, MILDLY FORGEFULL AT TIMES BUT SPECIFIES NEEDS. SHE'S PARTIAL WT.BEARING ON RLE W/1ASSIST AND FWW TO BS AND ALSO USED BEDPAN THIS SHIFT, NO INCONTINENCE OR BM'S NOTED. IVF CONTINUE INFUSING. PT HAS DENIED PAIN, N/V/D AND NO S/S DISCOMFORT. SHE REFUSED SIMETHICONE D/T NO LONGER PASSING FLATUS AND OR HAVING EPIGASTRIC DISTRESS. VSS/AFEBRILE, NO ACUTE CHANGES. WCTM AND REPORT TO DAY RN.
[2019-03-18 04:36] LABS: Hematocrit 29.2 % (33.0-51.0); Hemoglobin 9.4 g/dL (11.5-16.0)
[2019-03-18 04:55] LABS: Albumin, Blood 2.5 g/dL (3.4-5.0); Anion Gap 9 mmol/L (6-16); Blood Urea Nitrogen 63 mg/dL (8-24); Bun/Creatinine Ratio 10.6 (12.0-20.0); CO2, Blood 25 mmol/L (21-32); Calcium, Blood 7.3 mg/dL (8.5-10.1); Chloride, Blood 109 mmol/L (98-108); Creatinine, Blood 5.93 mg/dL (0.40-1.00); Glomerular Filtration Rate 7 (60-); Glucose, Blood 91 mg/dL (70-99); Magnesium, Blood 1.7 mg/dL (1.6-2.4); Phosphorus, Blood 4.9 mg/dL (2.5-4.9); Potassium, Blood 3.3 mmol/L (3.5-5.5); Sodium, Blood 143 mmol/L (136-145)
[2019-03-18] MEDS ORDERED: HYDR1TAB94 PO (14:30)
--- NOTE | 2019-03-18 14:58 | NUR ---
PT COMPLAINS OF PAIN 04/26. NURSE CALLED DR ZHU, NEW ORDERS PLACED. INSTRUCTED NURSE TO ADMINISTER TYLENOL PER EMAR FIRST THEN TRY NORCO. PT MEDICATED WITH TYLENOL AT THIS TIME.
--- NOTE | 2019-03-18 18:19 | NUR ---
SHIFT SUMMARY PT AXO, PLEASANT AND COOPERATIVE WITH CARE THOUGH FORGETFUL. VSS. UPON START OF SHIFT PT COMPLAINED OF PAIN ONLY IN R. GREAT TOE. DR ZHU AWARE. THEN WHEN FAMILY WAS VISITING, PT WAS IN SEVERE PAIN RATING 10/10. HER SIGNIFICANT OTHER WAS SPEAKING ON HER BEHALF AND STATING THAT SHE IS FORGETFUL THOUGH THIS NURSE FOUND PT WAS ABLE TO SUCCESSFULLY SPEAK ON HER OWN BEHALF. PT STATED THAT SHE TAKES NORCO AT HOME FOR CHRONIC BACK PAIN BUT WAS UNSURE OF DOSAGE. THIS NURSE VERIFIED WITH HER PHARMACY AND NOTIFIED DR ZHU, SEE EMAR. PT MEDICATED WITH ACETAMINOPHEN WHICH WAS EFFECTIVE PER PT. PT APPEARS COMFORTABLE AT THIS TIME. IV INFUSING PER EMAR. NO OTHER CHANGES THIS SHIFT. PT EAGER TO FEEL BETTER SO SHE CAN BE DISCHARGED. BED IN LOW POSITION, CALL LIGHT WITHIN REACH. UP WITH 1 ASSIST WITH FWW AND GB.
--- NOTE | 2019-03-19 03:59 | NUR ---
SHIFT SUMMARY: PT IS ALERT AND ORIENTED. PT IS CALM AND COOPERATIVE WITH CARE. PT IS A ONE PERSON ASSIST FOR AMBULATION. PT CALLS APPROPRIATELY. PT DENIES PAIN, NAUSEA, VOMITING, AND SOB. PT SLEPT MUCH OF THE NIGHT WHEN NOT DISTURBED. NO ACUTE CHANGES OR COMPLICATIONS OVERNIGHT. BED IN LOW POSITION, CALL LIGHT WITHIN REACH. WILL CONTINUE TO MONITOR.
[2019-03-19 05:05] LABS: Bun/Creatinine Ratio 11.7 (12.0-20.0); Calcium, Blood 7.4 mg/dL (8.5-10.1); Creatinine, Blood 4.78 mg/dL (0.40-1.00); Potassium, Blood 3.7 mmol/L (3.5-5.5)
--- NOTE | 2019-03-19 17:13 | NUR ---
SHIFT SUMMARY: PT IS A/O X 4 AND VERY PLEASANT AND COOPERATIVE WITH HER CARE ALTHOUGH STATES SHE IS FEELING MUCH BETTER AND IS READY TO GO HOME. HOSPITALIST STATES THAT DC WILL BE DETERMINDED AFTER MORNING LABS ARE REVIEWED. PT WAS ASSISTED UP TO CHAIR. IV FLUIDS ARE RUNNING ORDERED WITH NO ISSUES NOTED. SHE CALLS FOR HELP APPROPRIATELY WHEN NEEDED.
--- NOTE | 2019-03-20 03:22 | NUR ---
SHIFT SUMMARY- NO ACUTE EVENTS OVERNIGHT. PT. A&O, FORGETFUL AT TIMES. SBA TO THE BATHROOM. PT. SEEN BY DR. ZAMUDIO LATE AT NIGHT. ANTICIPATING D/C IN THE AM. DR. ZAMUDIO REQUESTED FOR FOLLOW UP APPT. TO BE SCHEDULED FOR FRIDAY 03/23 @1430. REFERRAL FOR NEPHROLOGY APPT. DOCUMENTED IN DISCHARGE SUMMARY. PT. RESTED COMFORTABLY DURING THE NIGHT, NO APPARENT DISTRESS NOTED. IV FLUIDS RUNNING. CALL LIGHT WITH AND SIDE RAILS UP X2. WILL CONT TO MONITOR.
[2019-03-20 04:04] LABS: Hematocrit 28.5 % (33.0-51.0); Hemoglobin 9.3 g/dL (11.5-16.0)
[2019-03-20 04:31] LABS: Albumin, Blood 2.8 g/dL (3.4-5.0); Albumin/Globulin Ratio 0.8 (0.8-1.8); Bilirubin, Total 0.5 mg/dL (0.1-1.0); Calcium, Blood 7.2 mg/dL (8.5-10.1); Creatinine, Blood 3.46 mg/dL (0.40-1.00); Globulin, Blood 3.5 g/dL (2.2-4.0); Magnesium, Blood 1.4 mg/dL (1.6-2.4); Phosphorus, Blood 3.4 mg/dL (2.5-4.9); Potassium, Blood 3.4 mmol/L (3.5-5.5); Total Protein, Blood 6.3 g/dL (6.4-8.2)
--- NOTE | 2019-03-20 16:15 | NUR ---
SHIFT SUMMARY PT STATES SHE IS NO LONGER HAVING DIARRHEA, SHE IS DECLINING DIARRHEA MEDS THIS SHIFT. SHE HAS BEEN UP TO THE BATHROOM WITH A FWW. AT TIMES UNSTEADY, WE HAVE ASKED HER TO CALL FOR ASSISTANCE. SHE IS AMBULATING WELL OTHERWISE. SHE IS EAGERLY ANTICIPATING DISCHARGE. SHE DENIES PAIN OR DISCOMFORT. FLUIDS ARE STILL RUNNING VIA IV @ 50 ML/HR. SHE IS FORGETFUL @ TIMES.
--- NOTE | 2019-03-21 03:08 | NUR ---
SHIFT SUMMARY PATIENT HAD NO ACUTE CHANGES OBSERVED THIS SHIFT. AXOX 3 AND FORGETFUL AT TIMES. ONE PERSON ASSIST W/FWW TO BR. TAKES MEDICATION WHOLE WITH WATER. VSS/AFEBRILE. DENIES PAIN, SOB, AND N/V. PIV REMAINS INTACT. NS INFUSING AT 50 mL/HR. COOPERATIVE WITH CARE. DR ZAMUDIO ASK HOW COME PATIENT IS STILL HERE. CALL LIGHT IN REACH. BED IN LOWEST POSITION. WILL CONTINUE TO MONITOR UNTIL DAY SHIFT NURSE ASSUMES CARE.
[2019-03-21 05:02] LABS: Hematocrit 30.4 % (33.0-51.0); Hemoglobin 9.8 g/dL (11.5-16.0)
[2019-03-21 05:28] LABS: Magnesium, Blood 1.6 mg/dL (1.6-2.4)
[2019-03-21 05:30] LABS: Albumin, Blood 2.7 g/dL (3.4-5.0); Anion Gap 9 mmol/L (6-16); Blood Urea Nitrogen 47 mg/dL (8-24); Bun/Creatinine Ratio 17.4 (12.0-20.0); CO2, Blood 22 mmol/L (21-32); Calcium, Blood 7.4 mg/dL (8.5-10.1); Chloride, Blood 113 mmol/L (98-108); Glomerular Filtration Rate 18 (60-); Glucose, Blood 76 mg/dL (70-99); Phosphorus, Blood 3.9 mg/dL (2.5-4.9); Potassium, Blood 3.2 mmol/L (3.5-5.5); Sodium, Blood 144 mmol/L (136-145)
[2019-03-21] MEDS ORDERED: ACET325 PO (12:02)
[2019-03-21] MEDS ORDERED: AMLO10 PO (12:03)
[2019-03-21] MEDS ORDERED: ACTIVATED CHARCOAL PO (12:04)
[2019-03-21] MEDS ORDERED: DAIRY RELIE9000 UNIT PO (12:05)
[2019-03-21] MEDS ORDERED: Questran4 GM PO (12:05)
[2019-03-21] MEDS ORDERED: FAMO20 PO (12:06)
[2019-03-21] MEDS ORDERED: ONDA4ODT MM (12:06)
[2019-03-21] MEDS ORDERED: SIME80CH PO (12:07)
--- NOTE | 2019-03-21 12:32 | NUR ---
DC ORDERS RECEIVED. PATIENT STATES SHE IS READY TO GO HOME. DC PACKET COMPLETED, EDUCATION PROVIDED. PATIENT VERBALIZED UNDERSTANDING. SHE IS FORGETFUL. A FRIEND WAS PRESENT AT [place] AND ALSO RECEIVED INFO. PATIENT HAS MANY NEW MEDICATIONS TO [facility] B[facility] MAN FROM [facility]. PATIENT AND FRIEND VERBALIZED UNDERSTANDING. HOME HEALTH TO FOLLOW UP AT HOME. PATIENT ESCORTED OUT VIA WHEELCHAIR, STABLE AT TIME OF DISCHARGE.
[2019-03-22 14:07] LABS: ANA DIRECT Negative (Negative); ANTIMYELOPEROXIDASE (MPO) ABS 28.8 U/mL (0.0-9.0); ANTIPROTEINASE 3 (PR-3) ABS 5.9 U/mL (0.0-3.5); ATYPICAL PANCA <1:20 titer (Neg:<1:20); CYTOPLASMIC (C-ANCA) <1:20 titer (Neg:<1:20)
--- NOTE | 2019-03-30 03:20 | NUR ---
ORDERS FOR ECHO 2D AND BLADDER SCAN-GUERLINE WERE ORDERED BY ELLIOTT ZAMUDIO MD NOT LIANA ZAMUDIO MD.
== END 2019-03-21 12:39 | disposition home health service (06) | DRG 683 ==
LOC: ER 16:41 → PCU 19:49 → MEDS 03-12 11:19 → ENPENDDIS 03-21 11:16 → MEDS 03-21 12:39
PROVIDERS: Emergency Medicine; Hospitalist; Internal Medicine; Internal Medicine Nephrology; ADMIT Internal Medicine
DX: N17.9 Acute kidney failure, unspecified (principal); I13.0 Hypertensive heart and chronic kidney disease with heart failure and stage 1 through stage 4 chronic kidney disease, or unspecified chronic kidney disease; I50.32 Chronic diastolic (congestive) heart failure; E87.2 Acidosis; N18.3 Chronic kidney disease, stage 3 (moderate); D63.1 Anemia in chronic kidney disease; E87.5 Hyperkalemia; R54 Age-related physical debility; E03.9 Hypothyroidism, unspecified; G31.84 Mild cognitive impairment of uncertain or unknown etiology; R19.7 Diarrhea, unspecified; E83.39 Other disorders of phosphorus metabolism; E86.9 Volume depletion, unspecified; E88.09 Other disorders of plasma-protein metabolism, not elsewhere classified; E87.6 Hypokalemia; E83.42 Hypomagnesemia; Z88.2 Allergy status to sulfonamides; Z87.891 Personal history of nicotine dependence; Z79.899 Other long term (current) drug therapy
CPT/HCPCS: 0097U; 36415; 51798; 71045; 74176; 76770; 80048; 80053; 80069; 81001; 81050; 82550; 82728; 82784; 83516; 83520; 83540; 83550; 83735; 83880; 84100; 84156; 84165; 84484; 84550; 85014; 85018; 85025; 85027; 85610; 86038; 86256; 86334; 86335; 87081; 87493; 93005; 93010; 93306; 96365; 96375; 97110; 97116; 97162; 97166; 97530; 97535; 99285-25; A9270; J0881; J3475; J3480; J7030; J7070; J7512; P9612

== ENCOUNTER 2019-04-03 15:04 | Observation (INO) | payer OTHER ==
[~2019-04-03] VITALS: Ht 157.5 cm; Wt 53.5 kg
[~2019-04-03 15:04] MED LIST changes: +ACET325 PO; +ACTIVATED CHARCOAL PO; +AMLO10 PO; +ATEN50 PO; +CELE100 PO; +DAIRY RELIE9000 UNIT PO; +DONEPEZIL HCL5 M1 PO; +FAMO20 PO; +LEVSOD100 PO; +LEVSOD125 PO; +ONDA4ODT MM; +Questran4 GM PO; +SIME80CH PO
[2019-04-03 15:50] LABS: BASOPHILS ABSOLUTE AUTO 0.04 K/mm3 (0.00-0.23); BASOPHILS PERCENT AUTO 1 % (0-2); EOSINOPHILS ABSOLUTE AUTO 0.02 K/mm3 (0.00-0.68); EOSINOPHILS PERCENT AUTO 0 % (0-6); Hematocrit 30.9 % (33.0-51.0); Hemoglobin 9.8 g/dL (11.5-16.0); IMMATURE GRAN ABSOLUTE AUTO 0.04 K/mm3 (0.00-0.10); IMMATURE GRAN PERCENT AUTO 1 % (0-1); LYMPHOCYTES ABSOLUTE AUTO 0.94 K/mm3 (0.84-5.20); LYMPHOCYTES PERCENT AUTO 21 % (21-46); MONOCYTES ABSOLUTE AUTO 0.48 K/mm3 (0.16-1.47); MONOCYTES PERCENT AUTO 11 % (4-13); Mean Corpuscular HGB 27.9 pg (26.0-34.0); Mean Corpuscular HGB Conc 31.7 g/dL (31.5-36.5); Mean Platelet Volume 10.8 fL (9.1-12.4); NEUTROPHILS ABSOLUTE AUTO 3.02 K/mm3 (1.96-9.15); NEUTROPHILS PERCENT AUTO 67 % (41-73); Platelet Count 190 K/mm3 (150-400); RDW Coefficient Variation 14.9 % (11.7-14.2); RDW Standard Deviation 47.3 fL (35.1-46.3); Red Blood Cell Count 3.51 M/mm3 (3.80-5.20); White Blood Cell Count 4.54 K/mm3 (4.00-11.30)
[2019-04-03 15:54] LABS: Mean Corpuscular Volume 88 fL (80-100)
[2019-04-03 16:09] LABS: Albumin, Blood 3.4 g/dL (3.4-5.0); Albumin/Globulin Ratio 0.8 (0.8-1.8); Bilirubin, Total 0.6 mg/dL (0.1-1.0); Calcium, Blood 8.6 mg/dL (8.5-10.1); Creatinine, Blood 1.4 mg/dL (0.40-1.00); Globulin, Blood 4.2 g/dL (2.2-4.0); Potassium, Blood 3.8 mmol/L (3.5-5.5); Total Protein, Blood 7.6 g/dL (6.4-8.2)
--- NOTE | 2019-04-03 21:15 | NUR ---
REPORT FROM ER NURSE RECIEVED. ROOM IS NOT CLEAN YET, WILL NOTIFY ER WHEN IT IS.
--- NOTE | 2019-04-03 22:05 | NUR ---
ADMISSION NOTE PT ARRIVED TO UNIT VIA STRETCHER, AMBULATES SBA c FWW TO BED. IMPAIRED GAIT D/T RECENT R HIP FX/REPAIR. PT IS A&OX4. ORIENTED TO CALL LT, RM, AND UNIT. ASSUMING CARE OF PT.
[2019-04-04 04:51] LABS: Hematocrit 30.1 % (33.0-51.0); Hemoglobin 9.6 g/dL (11.5-16.0); Mean Corpuscular HGB 27.9 pg (26.0-34.0); Mean Corpuscular HGB Conc 31.9 g/dL (31.5-36.5); Mean Corpuscular Volume 88 fL (80-100); Mean Platelet Volume 10.8 fL (9.1-12.4); Platelet Count 160 K/mm3 (150-400); RDW Coefficient Variation 14.8 % (11.7-14.2); RDW Standard Deviation 46.9 fL (35.1-46.3); Red Blood Cell Count 3.44 M/mm3 (3.80-5.20); White Blood Cell Count 3.39 K/mm3 (4.00-11.30)
[2019-04-04 05:09] LABS: International Normalized Ratio 0.98; Prothrombin Time Results 10.4 Sec (9.7-11.5)
[2019-04-04 05:16] LABS: Albumin, Blood 2.9 g/dL (3.4-5.0); Anion Gap 7 mmol/L (6-16); Blood Urea Nitrogen 21 mg/dL (8-24); Bun/Creatinine Ratio 16.2 (12.0-20.0); CO2, Blood 23 mmol/L (21-32); Calcium, Blood 8.5 mg/dL (8.5-10.1); Chloride, Blood 111 mmol/L (98-108); Glomerular Filtration Rate 42 (60-); Glucose, Blood 167 mg/dL (70-99); Magnesium, Blood 1.4 mg/dL (1.6-2.4); Phosphorus, Blood 3.5 mg/dL (2.5-4.9); Potassium, Blood 4.5 mmol/L (3.5-5.5); Sodium, Blood 141 mmol/L (136-145)
--- NOTE | 2019-04-04 06:15 | NUR ---
SHIFT SUMMARY PT ARRIVED TO UNIT EARLIER IN SHIFT. IS A&OX4 HOWEVER HAS SOME BEHAVIORAL DISTURBANCES R/T DEMENTIA AEB CALLING OUT FOR HELP RATHER THAN USING CALL LT APPROP. PT TO HAVE KIDNEY BIOPSY PER DR ZAMUDIO. NPO SINCE MIDNIGHT. WILL CONT TO MONITOR AND PROVIDE CARE UNTIL PRESUMED BY ONCOMING RN.
[2019-04-04 11:25] LABS: BASOPHILS ABSOLUTE AUTO 0.01 K/mm3 (0.00-0.23); BASOPHILS PERCENT AUTO 0 % (0-2); EOSINOPHILS PERCENT AUTO 0 % (0-6); Hematocrit 30.6 % (33.0-51.0); Hemoglobin 9.6 g/dL (11.5-16.0); IMMATURE GRAN ABSOLUTE AUTO 0.07 K/mm3 (0.00-0.10); IMMATURE GRAN PERCENT AUTO 2 % (0-1); LYMPHOCYTES ABSOLUTE AUTO 0.47 K/mm3 (0.84-5.20); LYMPHOCYTES PERCENT AUTO 14 % (21-46); MONOCYTES ABSOLUTE AUTO 0.08 K/mm3 (0.16-1.47); MONOCYTES PERCENT AUTO 2 % (4-13); Mean Corpuscular HGB Conc 31.4 g/dL (31.5-36.5); Mean Corpuscular Volume 89 fL (80-100); Mean Platelet Volume 11.9 fL (9.1-12.4); NEUTROPHILS ABSOLUTE AUTO 2.85 K/mm3 (1.96-9.15); NEUTROPHILS PERCENT AUTO 82 % (41-73); Platelet Count 171 K/mm3 (150-400); RDW Coefficient Variation 14.8 % (11.7-14.2); RDW Standard Deviation 47.8 fL (35.1-46.3); Red Blood Cell Count 3.43 M/mm3 (3.80-5.20); White Blood Cell Count 3.48 K/mm3 (4.00-11.30)
--- NOTE | 2019-04-04 13:50 | NUR ---
BIOPSY PT IS BACK IN HER ROOM S/P RENAL BIOPSY, VS WNL PT BREATHING EASILY ON RA NO SIGN OF DISTRES AT THIS TIME EATING LUNCH
--- NOTE | 2019-04-04 16:51 | NUR ---
pt is a/ox3, pleasant and cooperative, the pt is up with minimal assist to the bathroom, the pt today had a renal biopsy performed, and appears to have tolerated the procedure well, the pt appears to be breathing easily on ra, vs mnl, call light in reach, the pt had visitors at the bedside t/o the day
[2019-04-05 05:13] LABS: BASOPHILS ABSOLUTE AUTO 0.01 K/mm3 (0.00-0.23); BASOPHILS PERCENT AUTO 0 % (0-2); EOSINOPHILS PERCENT AUTO 0 % (0-6); Hematocrit 29.3 % (33.0-51.0); Hemoglobin 9.5 g/dL (11.5-16.0); IMMATURE GRAN ABSOLUTE AUTO 0.09 K/mm3 (0.00-0.10); IMMATURE GRAN PERCENT AUTO 1 % (0-1); LYMPHOCYTES ABSOLUTE AUTO 0.46 K/mm3 (0.84-5.20); LYMPHOCYTES PERCENT AUTO 6 % (21-46); MONOCYTES ABSOLUTE AUTO 0.14 K/mm3 (0.16-1.47); MONOCYTES PERCENT AUTO 2 % (4-13); Mean Corpuscular HGB 28.3 pg (26.0-34.0); Mean Corpuscular HGB Conc 32.4 g/dL (31.5-36.5); Mean Corpuscular Volume 87 fL (80-100); Mean Platelet Volume 10.9 fL (9.1-12.4); NEUTROPHILS ABSOLUTE AUTO 7.24 K/mm3 (1.96-9.15); NEUTROPHILS PERCENT AUTO 91 % (41-73); NRBC ABSOLUTE 0.04 K/mm3 (0.00-0.02); NRBC Auto 0.5 /100 WBC (0.0-0.2); Platelet Count 176 K/mm3 (150-400); RDW Standard Deviation 47.4 fL (35.1-46.3); Red Blood Cell Count 3.36 M/mm3 (3.80-5.20); White Blood Cell Count 7.94 K/mm3 (4.00-11.30)
--- NOTE | 2019-04-05 05:39 | NUR ---
SHIFT SUMMARY NO ACUTE CHANGES TONIGHT. HAD RENAL BIOPSY EARLIER IN DAY. PT VOIDING WNL, DARK YELLOW URINE. NO BLOOD NOTED. DENIES PAIN OR DISCOMFORT. A&OX4, SBA/IND IN RM, GAIT IMP D/T RECENT R HIP FX. USING FWW, AWARE OF LIMITATIONS. SLEPT WELL THROUGH THE NIGHT. WILL CONT TO MONITOR AND PROVIDE CARE UNTIL PRESUMED BY ONCOMING RN.
[2019-04-05 05:42] LABS: Albumin, Blood 2.9 g/dL (3.4-5.0); Anion Gap 8 mmol/L (6-16); Blood Urea Nitrogen 35 mg/dL (8-24); Bun/Creatinine Ratio 26.1 (12.0-20.0); CO2, Blood 24 mmol/L (21-32); Calcium, Blood 8.4 mg/dL (8.5-10.1); Chloride, Blood 106 mmol/L (98-108); Creatinine, Blood 1.34 mg/dL (0.40-1.00); Glomerular Filtration Rate 40 (60-); Glucose, Blood 237 mg/dL (70-99); Magnesium, Blood 1.4 mg/dL (1.6-2.4); Phosphorus, Blood 1.4 mg/dL (2.5-4.9); Potassium, Blood 4.3 mmol/L (3.5-5.5); Sodium, Blood 138 mmol/L (136-145)
--- NOTE | 2019-04-05 15:29 | NUR ---
SUMMARY PT IS A/O X4, PLEASANT/COOPERATIVE AFFECT. UP SBA TO BR, GAIT STEADY. DX RENAL FAILURE, GFR 40.DR ZAMUDIO MANAGING RENAL FX, SHE HAD RENAL BIOPSY YESTERDAY, DR ZAMUDIO WAITING RESULTS. DR LIAO IN TO SEE HER THIS AM, PLACE D/C ORDER HOWEVER CANCEL AFTER CONSULTING W DR ZAMUDIO. PHOS & MAG GIRON, ORDER IV SUPPLEMENTS THIS AM. MRSA SWABS +, SHE CONTINUES CONTACT ISOLATION. VSS.
--- NOTE | 2019-04-06 04:30 | NUR ---
SHIFT SUMMARY NO ISSUES NOTED. PT HAS SLEPT T/O SHIFT. PT IS CURRENTLY SLEEPING AND IN NO DISTRESS. CALL LIGHT IN REACH.
[2019-04-06 05:06] LABS: Hematocrit 30.5 % (33.0-51.0); Hemoglobin 9.8 g/dL (11.5-16.0)
[2019-04-06 05:32] LABS: Anion Gap 8 mmol/L (6-16); Blood Urea Nitrogen 41 mg/dL (8-24); Bun/Creatinine Ratio 32.8 (12.0-20.0); CO2, Blood 25 mmol/L (21-32); Calcium, Blood 8.4 mg/dL (8.5-10.1); Chloride, Blood 107 mmol/L (98-108); Creatinine, Blood 1.25 mg/dL (0.40-1.00); Glomerular Filtration Rate 44 (60-); Glucose, Blood 188 mg/dL (70-99); Magnesium, Blood 1.5 mg/dL (1.6-2.4); Phosphorus, Blood 2.4 mg/dL (2.5-4.9); Potassium, Blood 3.6 mmol/L (3.5-5.5); Sodium, Blood 140 mmol/L (136-145)
--- NOTE | 2019-04-06 10:07 | NUR ---
DISCHARGE DR ZAMUDIO IN TO SEE PT THIS AM, REVIEW RESULTS OF RENAL BIOPSY, STATE OK TO D/C HOME FROM NEPHROLOGY STANDPOINT. DR LIAO STATE OK TO D/C HOME TODAY w ORDERS PLACED YESTERDAY. PT STATE FEELS READY FOR D/C. IV D/C INTACT. D/C INSTRUCT REVIEWED. PT STATE WILL PROVIDE TRANSPORTATION LATER THIS MORNING OR EARLY AFTERNOON. SHE IS PLEASANT/APPRECIATIVE.
== END 2019-04-06 10:37 | disposition home or self-care (01) ==
LOC: DELPENDDIS → ER 15:04 → MEDS 15:05 → ENPENDDIS 04-05 09:26 → MEDS 04-06 10:37
PROVIDERS: Internal Medicine Nephrology; Physician Assistant; ADMIT Hospitalist
DX: N17.9 Acute kidney failure, unspecified (principal); I12.9 Hypertensive chronic kidney disease with stage 1 through stage 4 chronic kidney disease, or unspecified chronic kidney disease; N18.3 Chronic kidney disease, stage 3 (moderate); D63.1 Anemia in chronic kidney disease; E86.9 Volume depletion, unspecified; E03.9 Hypothyroidism, unspecified; F03.90 Unspecified dementia, unspecified severity, without behavioral disturbance, psychotic disturbance, mood disturbance, and anxiety; Z79.899 Other long term (current) drug therapy; E83.42 Hypomagnesemia; D72.819 Decreased white blood cell count, unspecified; D64.9 Anemia, unspecified; D72.810 Lymphocytopenia
CPT/HCPCS: 36415; 50200; 77012; 80048; 80053; 80069; 83735; 85014; 85018; 85025; 85027; 85060; 85610; 85730; 87081; 88305; 88313; 88329; 88346; 88348; 88350; 96365; 96366; 96367; 96372; 96375; 96376; 99284; G0378; J0881; J2930; J3475; J7050; J7060

== ENCOUNTER 2019-09-21 11:43 | Emergency (ER) | payer OTHER ==
[~2019-09-21] VITALS: Ht 157.5 cm; Wt 60.8 kg
[2019-09-21] MEDS ORDERED: Norco 5-325 Ta1 EACH PO (12:40)
== END 2019-09-21 13:13 | disposition home or self-care (01) ==
LOC: ER 11:43
DX: S92.314A Nondisplaced fracture of first metatarsal bone, right foot, initial encounter for closed fracture (principal); I10 Essential (primary) hypertension; E03.9 Hypothyroidism, unspecified; Z79.899 Other long term (current) drug therapy; W20.8XXA Other cause of strike by thrown, projected or falling object, initial encounter
CPT/HCPCS: 73630; 99283-25

== ENCOUNTER 2022-09-12 15:39 | Inpatient (IN) | payer OTHER ==
[~2022-09-12] VITALS: Ht 162.6 cm; Wt 61.2 kg
[~2022-09-12 15:39] MED LIST changes: -DAIRY RELIE9000 UNIT PO; +LACTASE 9000 UNIT PO; +LEVSOD112 PO; -LEVSOD125 PO; +Norco 5-325 Ta1 EACH PO
[2022-09-12 17:34] LABS: BASOPHILS ABSOLUTE AUTO 0.03 K/mm3 (0.00-0.23); BASOPHILS PERCENT AUTO 1 % (0-2); EOSINOPHILS PERCENT AUTO 2 % (0-6); Hematocrit 35.7 % (33.0-51.0); Hemoglobin 11.4 g/dL (11.5-16.0); IMMATURE GRAN ABSOLUTE AUTO 0.03 K/mm3 (0.00-0.10); IMMATURE GRAN PERCENT AUTO 1 % (0-1); LYMPHOCYTES ABSOLUTE AUTO 0.97 K/mm3 (0.84-5.20); LYMPHOCYTES PERCENT AUTO 16 % (21-46); MONOCYTES ABSOLUTE AUTO 0.53 K/mm3 (0.16-1.47); MONOCYTES PERCENT AUTO 9 % (4-13); Mean Corpuscular HGB 29.1 pg (26.0-34.0); Mean Corpuscular HGB Conc 31.9 g/dL (31.5-36.5); Mean Corpuscular Volume 91 fL (80-100); Mean Platelet Volume 10.7 fL (9.1-12.4); NEUTROPHILS ABSOLUTE AUTO 4.44 K/mm3 (1.96-9.15); NEUTROPHILS PERCENT AUTO 73 % (41-73); Platelet Count 133 K/mm3 (150-400); RDW Coefficient Variation 15.6 % (11.7-14.2); RDW Standard Deviation 51.7 fL (35.1-46.3); Red Blood Cell Count 3.92 M/mm3 (3.80-5.20)
[2022-09-12 17:53] LABS: Albumin, Blood 3.1 g/dL (3.4-5.0); Albumin/Globulin Ratio 0.8 (0.8-1.8); Bun/Creatinine Ratio 19.3 (12.0-20.0); Calcium, Blood 8.6 mg/dL (8.5-10.1); Creatinine, Blood 1.09 mg/dL (0.40-1.00); Globulin, Blood 3.7 g/dL (2.2-4.0); Potassium, Blood 4.3 mmol/L (3.5-5.5); Total Protein, Blood 6.8 g/dL (6.4-8.2)
[2022-09-13] MEDS ORDERED: ARIPIPRAZOLE10 M4 PO (02:06)
[2022-09-13 05:34] LABS: International Normalized Ratio 1.03; Prothrombin Time Results 10.8 Sec (9.7-11.5)
--- NOTE | 2022-09-13 05:52 | NUR ---
PT IS A&O2-3, BEDREST WITH C-COLLAR IN PLACE, RA, PURIWICK IN PLACE, PRN PAIN MED GIVEN PER SEP FOR 8 LEFT HIP PAIN, VSS, CONTINUE POC
--- NOTE | 2022-09-13 10:04 | NUR ---
PT ARRIVED TO RM 216 AT 0955. PT IS ALERT AND ORIENTED TO SELF. PT REPORTS PAIN IS MANAGED. SHE IS RESTING IN A SUPINE POSITION WITH C-COLLAR IN PLACE. BED ALARM IN PLACE. ATTEMPTED TO REACH OUT TO PT'S DAUGHTER TAHIRA, CALL SIGIFREDO IN PLACE AND UNABLE TO REACH FAMILY. CARYL DUNNRESTAURANT ASSOCIATE WAS ABLE TO CONTACT PT'S FAMILY AT THIS TIME. DR. RONDON NOTIFIED OF CONSULT.
--- NOTE | 2022-09-13 12:22 | NUR ---
CALL RECEIVED FROM PT ISABELLA DUNN TO COME AND SPEAK TO PT FAMILY THAT IS IN THE ROOM ABOUT TREATMENT/SURGERY OPTIONS. PT NEPHEW, SETELA IS IN ROOM. HE APPEARS TO BE ANXIOUS/CONFUSED, REPORTS HE THINKS HE HAS FIGURED OUT WHAT IS GOING ON WITH THE PT. PROVIDED EDUCATION ON WHAT THE PT DX IS AND A DECISION HAS NOT YET BEEN MADE WHETHER THE PT WILL HAVCE SURGERY OR NOT. HE DOES NPOT KNOW IF THE SURGEON HAS VISITED AND HAS NOT SPOKEN TO HIS AUNT, TAHIRA MENJIVAR. ALL QUESTIONS ANSWERED AT THIS TIME AND ADVISED ESTELA I WILL FOLLOW UP A LATER TIME WHEN WE HAVE MORE INFORMATION. PT IS ALERT LAYING SUPINE IN BED SHE IS PLEASANT AND COOPERATIVE. SHE IS SMILING AND APPEARS TO BE COMFORTABLE. F/UP WITH RN, DR MINOR SPOKE TO PT TAHIRA GIRARD THIS AM AND SHE PLANS ON COMING IN THIS AFTERNOON AFTER SHE IS DONE WITH WORK TO MEET WITH HIM TO DECIDE WHAT THE POC WILL BE. WILL PLAN TO MEET WITH DAUGHTER AT THAT TIME.
--- NOTE | 2022-09-13 20:23 | NUR ---
SHIFT SUMMARY PT IS WAITING FOR SURGER VS NON-SURG MANAGEMENT OF L FEMUR FX. PT'S FAMILY IS UNDECIDED IF THEY WILL PURSUE SURGERY. PT'S DAUGHTER TAHIRA IS HER POA. PT REMAINS IN A C-COLLAR R/T C2 FX. PT HAS BEEN LOG ROLLED FROM SIDE TO SIDE FOR FREQUENT REPOSITIONING. PUREWICK IN PLACE FOR INCONTINENCE. PUREWICK IS FUNCTIONING WELL. PALLIATIVE CARE CONSULT PLACED. REPORT GIVEN TO GALINA DUNN.
[2022-09-13 23:37] LABS: Source, Urine Foley catheter
[2022-09-13 23:46] LABS: Bilirubin, Urine Neg (Neg); Blood, Urine Neg (Neg); Glucose Qualitative, Urine Neg (Neg); Ketones, Urine Neg (Neg); Leukocyte Esterase, Urine Neg (Neg); Nitrite, Urine Neg (Neg); Protein, Urine Neg (Neg); Urobilinogen, Urine 2+ (Normal)
[2022-09-14 00:47] LABS: Appearance, Urine Clear (Clear); Color, Urine Yellow (P-Yellow)
[2022-09-14 04:32] LABS: Hematocrit 31.8 % (33.0-51.0); Hemoglobin 10.6 g/dL (11.5-16.0); Mean Corpuscular HGB 29.6 pg (26.0-34.0); Mean Corpuscular HGB Conc 33.3 g/dL (31.5-36.5); Mean Corpuscular Volume 89 fL (80-100); Mean Platelet Volume 10.5 fL (9.1-12.4); Platelet Count 115 K/mm3 (150-400); RDW Coefficient Variation 14.9 % (11.7-14.2); Red Blood Cell Count 3.58 M/mm3 (3.80-5.20)
--- NOTE | 2022-09-14 04:47 | NUR ---
SHIFT SUMMARY ADM FOR L HIP FX AND C2 FX WITH C-COLLAR BRACE. REPOSITIONED Q2 WITH SCD. PT WAS INITIALLY HAS PUREWICK, HAD A LARGE BROWN LIQ BM. PLACED A ROY CATH, OBTAINE UA SAMPLE AND SENT TO LAB. PT REPORTS PAIN AND DISCOMFORT. PAIN MANAGED WITH FENTANYL. PT ALSO VERBALIZE BEING ANXIOUS STATING "I'M SCARED! WHERE'S TAHIRA?" PT STARTING TO GET ANXIOUS, YELLING. CALLED DR. SIMPSON, ORDER OF ZYPREXA 5MG IM X1, WHICH HAD HELPED HER REST AND SLEEP THE REST OF THE SHIFT. CALL LIGHT WITHIN REACH. WILL PROVIDE REPORT TO ONCOMING NURSE.
[2022-09-14 06:42] LABS: Albumin, Blood 2.5 g/dL (3.4-5.0); Anion Gap 6 mmol/L (6-16); Blood Urea Nitrogen 15 mg/dL (8-24); Bun/Creatinine Ratio 17.3 (12.0-20.0); CO2, Blood 22 mmol/L (21-32); Calcium, Blood 7.8 mg/dL (8.5-10.1); Chloride, Blood 116 mmol/L (98-108); Creatinine, Blood 0.87 mg/dL (0.40-1.00); Glomerular Filtration Rate 65 (60-); Glucose, Blood 103 mg/dL (70-99); Phosphorus, Blood 2.9 mg/dL (2.5-4.9); Potassium, Blood 3.6 mmol/L (3.5-5.5); Sodium, Blood 144 mmol/L (136-145)
--- NOTE | 2022-09-14 20:07 | NUR ---
SHIFT SUMMARY PT ALERT, PLEASANT & COOPERATIVE WITH CARE, FAMILY AT BEDSIDE T/O SHIFT. PAIN MANAGED WITH 25 MCGS, GIVEN ONCE THIS AM. IVF @ 75 MLS/HR. KIERRA PO, FINGER FOODS, NEEDS ASSIST WITH SET UP AND LIQUIDS. BEDREST. C-COLLAR IN PLACE. ROY PATENT & DRAINING YELLOW URINE, STAT LOCK ON, OFF FLOOR. REPORT TO NYDIA DUNN.
--- NOTE | 2022-09-15 05:42 | NUR ---
SHIFT SUMMARY PATIENT IS AOX2-3. CALLS OUT AT TIMES, REORIENTS EASILY. LEFT HIP HAS SOME EXTERNAL ROTATION AND SHORTENING. PATIENT HAS C-COLLAR ON FOR C2-FX. PATIENT TOLERATES PO INTAKE, IV FLUIDS INFUSING. MEDICATED FOR PAIN PER EMAR. ROY PATENT AND DRAINING YELLOW CLEAR URINE. STAT LOCK ON AND CLEAN ATTENDS IN PLACE. REPOSITIONED WITH PILLOWS T/O SHIFT. VSS, BEDALARM IS ON AND CALL LIGHT IS IN REACH.
--- NOTE | 2022-09-15 12:58 | NUR ---
CUT SANDWICH INTO BITE SIZED PIECES. PT WAS STRUGGLING TO EAT OTHERWISE. NOTIFIED NURSE OF CHIN DISCOMFORT.
--- NOTE | 2022-09-15 13:05 | NUR ---
Initial palliative care consult: Marycarmen is an 87 year old lady who had a GLF with a neck and L hip fracture. She has a history of CKD, dementia, HTN and thyroid disease. Marycarmen lives with her daughter, Lexy and has a family support system in place. Met with Marycarmen and Kin in Marycarmen's room this afternoon. Answered questions and discussed options for care. Surgery vs. no surgery and also discussed option/requirements for HH and hospice. Lexy had some specific questions that she wanted to ask Dr. Casillas. Called Dr. Casillas who stated he would call Lexy back in about 45 minutes to answer her questions. Provided information on HH vs. hospice as well as considering comfort care booklet for Lexy. 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 She received help from her nephew and other family members. Lexy reports that Marycarmen at baseline isn't very mobile anymore and requires assistance for all her ADLs. Marycarmen is able to feed herself if someone sets up her meal and cuts up her food. Lexy reports that she will talk with Dr. Casillas and consider her options before making a decision. PC to plan to check in with Lexy later this afternoon after she has a chance to speak with Dr. Casillas. Nursing and Preethi CM updated. PC to continue to follow.
--- NOTE | 2022-09-15 15:22 | NUR ---
Joint visit with SHAUN Beatty and this PC RN. Pt resting in bed, daughter Lexy, and grandson at bedside. Lexy reports speaking with Dr Lopez and decision was made to not pursue surgery. Lexy reports plan to read hand out provided by previous PC RN Mira. She reports weighing options between home health and comfort care. Lexy is requesting Physical Therapy evaluation to determine if home health would be appropriate which also help her determine direction between home health and hospice. Continued supportive visit. Lexy also reports Dr Lopez can not make the decision regarding the hard C collar and provider in [place] would need to make this decision regarding soft collar. Spoke with lead manufacturing engineering techSHAUN Reyez who is assuming care of Pt and relayed information. Palliative Care will remain available
--- NOTE | 2022-09-15 16:25 | NUR ---
ASSUMED CARE AT [facility] 1530. PT SITTING IN BED. ALERT TO SELF AND DAUGHTER. PT C/O C COLLAR BOTHERING HER CHIN. MEPILEX APPLIED. DAUGHTER HAD PREVIOUSLY APPLIED A BAND AID SO MEPILEX APPLIED OVER THE TOP. EDUCATED DAUGHTER AND PT THAT PER NEURO CONSULT C-COLLAR TO REMAIN IN PLACE UNTIL OUTPT FOLLOW UP APT. DAUGHTER VERBALIZED UNDERSTANDING.
[2022-09-16 04:56] LABS: Hematocrit 29.2 % (33.0-51.0); Hemoglobin 9.8 g/dL (11.5-16.0); Mean Corpuscular HGB 29.3 pg (26.0-34.0); Mean Corpuscular HGB Conc 33.6 g/dL (31.5-36.5); Mean Corpuscular Volume 87 fL (80-100); Mean Platelet Volume 10.4 fL (9.1-12.4); Platelet Count 135 K/mm3 (150-400); RDW Coefficient Variation 14.6 % (11.7-14.2); RDW Standard Deviation 46.8 fL (35.1-46.3); Red Blood Cell Count 3.34 M/mm3 (3.80-5.20); White Blood Cell Count 5.84 K/mm3 (4.00-11.30)
--- NOTE | 2022-09-16 07:46 | NUR ---
PT VSS T/O NIGHT. PAIN MGD W/TYLENOL AND REPOSITIONING. C-COLLAR IN PLACE, PT NEEDING FREQ REMINDING TO LEAVE ON. PT ASSISTED W/PO FLUIDS, ATTENDS CHANGED PRN, PT PLEASANT AND COOPERATIVE W/CARE, REORIENTED PRN T/O NIGHT. AWAITING DC PLANNING.
[2022-09-16 17:00] LABS: Albumin, Blood 2.3 g/dL (3.4-5.0); Anion Gap 3 mmol/L (6-16); Blood Urea Nitrogen 13 mg/dL (8-24); Bun/Creatinine Ratio 15.2 (12.0-20.0); CO2, Blood 24 mmol/L (21-32); Calcium, Blood 7.6 mg/dL (8.5-10.1); Chloride, Blood 117 mmol/L (98-108); Creatinine, Blood 0.86 mg/dL (0.40-1.00); Glomerular Filtration Rate 66 (60-); Glucose, Blood 111 mg/dL (70-99); Phosphorus, Blood 2.8 mg/dL (2.5-4.9); Potassium, Blood 3.9 mmol/L (3.5-5.5); Sodium, Blood 144 mmol/L (136-145)
--- NOTE | 2022-09-16 17:01 | NUR ---
SHIFT SUMMARY NO ACUTE CHANGES THIS SHIFT. PATIENT DID WORK W/ PT AND DID WELL, 2P ASSIST TO EDGE OF BED AND STOOD X3 TIMES W/ FWW. PATIENT REPORTED INCREASED PAIN WITH MOVEING AND STANDING EXPECTED. MEDICATED PER EMAR T/O SHIFT FOR PAIN. PATIENT C/O OF C-COLLAR BUGGING EHR THIS AM, READJUSTED WHILE PATIENT WAS SITTING UP AT EDGE OF BED AND IT APPEARS TO BE SITTING IN A BETTER POSITION AND PATIENTS CHIN IS REMAINING IN THE CORRECT PLACE NOW. DECREASED APPEPTITE BUT IS EATING SOME AND DRANK 2 ENSURE COMPLETES THIS SHIFT. ROY IN PLACE DRAINING YELLOW URINE, ATTENDS IN PLACE. CONTINENT OF BM THIS SHIFT. USES CALL LIGHT APPROPRIATELY, WILL REPORT TO ONCOMING RN AT 1900.
--- NOTE | 2022-09-17 05:08 | NUR ---
SHIFT SUMMARY: PT RESTED T/O THE NIGHT. REPOSITIONED AND FLOATED WITH PILLOWS. PT DENIED HAVING PAIN DURING THE SHIFT. ROY REMAINS PATENT AND DRAINING TO GRAVITY. C COLLAR REMAINS IN PLACE. TOLERATING PO FLUIDS AND FOOD. EATING SMALL AMOUNTS. VSS REMAINED STABLE. PT IS CONFUSED AT TIMES, EASILY REORIENTED. FOLLOWS COMMANDS. RESTING AT THIS TIME WITH CALL LIGHT IN REACH. WILL GIVE REPORT TO DAY TIME RN.
--- NOTE | 2022-09-17 10:10 | NUR ---
0949 PT ASSITED TO SITTING POSITION ON EDGE OF BED BY MYSELF AND PT. PT HAD 5 SECOND EPISODE WHILE SITTING OF EYES BEING CLOSED AND NOT RESPONDING TO VERBAL STIMULI. PT THEN OPENED EYES AND STATING NECK HURTING. DR MARTINES IN ON ROUNDS TO SEE PATIENT AND DISCUSSED OBSERVATIONS WITH PHYSICIAN
--- NOTE | 2022-09-17 10:13 | NUR ---
C COLLAR REPOSITIONED AND ABD PAD PLACED UNDER CHIN AREA FOR PADDING CHIN WITH 1" REDDENED AREA.
--- NOTE | 2022-09-17 14:33 | NUR ---
DURING CHANGE MAJOR GIFTS OFFICER NOTIFIED RN OF REDNESS ON COCCYX THAT HAD BEEN COVERED BY MEPILEX DRESSING. REDNESS BLANCHABLE T/O. NEW MEPILEX PLACED. NOTIFIED PRIMARY RN. WILL CONTINUE TO REPOSITION PATIENT EVERY 2 HOURS TO HELP OFFLOAD PRESSURE.
--- NOTE | 2022-09-17 18:34 | NUR ---
CONFUSED AND CALLS OUT AT TIMES, DOES NOT USE CALL LIGHT. BED ALARM IN PLACE. C COLLAR IN PLACE, AREA ON CHIN REDDENED, AND PATIENT REPORTS PAINFUL PADDING PLACE IN C COLLAR AND PATIENT REPORTS LESS PAINFUL. PT MOVES ALL EXTREMITIES SPONTANEOUSLY. REPORTS PAIN TO LEFT HIP AND NECK WHICH INCREASES WITH MOVEMENT. PT AWAITING DISCHARGE TO SNF
--- NOTE | 2022-09-18 05:41 | NUR ---
SHIFT SUMMARY PT CONFUSED AND CALLS OUT WHEN NEEDING ASSISTANCE, HAS NOT USED CALL LIGHT, BUT WITHIN REACH. BED ALARM ON. C COLLAR IN PLACE, TRIED VARIOUS PADDING TO TRY AND CUSHION REDDENED AREA ON CHIN. PT INCONTINENT, ATTENDS IN PLACE CHANGING NEEDED. MEPILEX REPLACED ON COCCYX, REDDENED AREA. TOLERATES PO INTAKE WHEN HANDED FOODS/FLUIDS. MEDICATED ONCE FOR PAIN WITH TYLENOL.
[2022-09-18 11:52] LABS: SARS-Cov-2 (COVID-19) PCR, MMC NEGATIVE (NEGATIVE)
--- NOTE | 2022-09-18 13:00 | NUR ---
REPORT CALLED TO FRANC AT [facility]
--- NOTE | 2022-09-18 13:38 | NUR ---
TELEPHONE CALL TO HOSPITALIST DR MARTINES R/T NECK COLLAR ON PT, I WANTED TO CONFIRM WHETHER PT SHOULD HAVE A C-COLLAR ORDER FROM [facility] PRIOR TO DC. NO ORDERS RECEIVED. CALLED FRANC AT [facility] TO HAVE THEM FOLLOW UP WITH DOCTOR TO CONFIRM IF COLLAR NEEDS TO BE REPLACED.
--- NOTE | 2022-09-18 15:40 | NUR ---
DISCHARGE PT WAS TRANSFERRED INTO WC USING LIFT FOR TRANSFER TO [facility]. DAUGHTER WILL MEET THERE WITH ALL PERSONAL ITEMS. DAUGHTER WAS UNHAPPY WITH TRANSFER IN WC, PT KIERRA TRANSFER OKAY AND WAS IN MIN/MOD PAIN, THERE WERE 5 STAFF MEMBERS AND GENERAL MANAGER ASSISTING WITH LIFT TRANSFER/MOVING PATIENT AND HOLDING BLEs. CM WAS NOTIFIED ABOUT PT DAUGHTER NOT HAPPY WITH WC TRANSFER; CM REP THERE WAS A CONVERSATION ABOUT THE TYPE OF TRANSFER AND APPARENTLY THIS WAS DECIDED UPON WITH DAUGHTER. PT WAS KIERRA PO, VOIDING/INCONTINENT WITH BMS, 2 IVS DC'D, PAIN TREATED WITH TYLENOL PRIOR TO DC. REPORT WAS CALLED TO FRANC DUNN AT [facility], WITH REQUEST FOR HER TO CLARIFY PT NEED FOR C-COLLAR and TO REPLACE CURRENT COLLAR.
== END 2022-09-18 15:43 | DRG 551 ==
LOC: ER 15:39 → MEDS 18:07 → SURS 18:07 → MEDS 20:10 → SURS 09-13 09:56
PROVIDERS: Internal Medicine; Nurse Practitioner Acute Care; Student in an Organized Health Care Education/Training Program; ADMIT Internal Medicine
DX: S12.121A Other nondisplaced dens fracture, initial encounter for closed fracture (principal); S72.002A Fracture of unspecified part of neck of left femur, initial encounter for closed fracture; Z20.822 Contact with and (suspected) exposure to COVID-19; Z28.21 Immunization not carried out because of patient refusal; I12.9 Hypertensive chronic kidney disease with stage 1 through stage 4 chronic kidney disease, or unspecified chronic kidney disease; F32.A Depression, unspecified; I35.0 Nonrheumatic aortic (valve) stenosis; I27.20 Pulmonary hypertension, unspecified; N18.30 Chronic kidney disease, stage 3 unspecified; D63.1 Anemia in chronic kidney disease; G30.9 Alzheimer's disease, unspecified; F02.80 Dementia in other diseases classified elsewhere, unspecified severity, without behavioral disturbance, psychotic disturbance, mood disturbance, and anxiety; E03.9 Hypothyroidism, unspecified; Z90.49 Acquired absence of other specified parts of digestive tract; Z90.710 Acquired absence of both cervix and uterus; Z98.890 Other specified postprocedural states; W06.XXXA Fall from bed, initial encounter; Y92.009 Unspecified place in unspecified non-institutional (private) residence as the place of occurrence of the external cause
CPT/HCPCS: 36415; 70450; 72125; 73502; 80053; 80069; 81003; 85025; 85027; 85610; 93306; 97110; 97162; 97530; 99285-25; A9270; J1650; J3010; J7030; U0004